=== PATIENT | male | born 1950 | race Caucasian/White ===

== ENCOUNTER 2018-01-19 17:45 | Inpatient (IN) | payer MEDICARE ==
[2018-01-19] MEDS ORDERED: Nicotine PATCH 21 MG/24 HR* PATCH TRANSDERM ONE (18:55)
[2018-01-19 18:56] LABS: ABS Basophils 0.1 10^3/ul (0-0.2); ABS Eosinophils 0.4 10^3/ul (0-0.6); ABS Lymphocytes 2.7 10^3/ul (1.0-4.8); ABS Neutrophils 4.6 10^3/ul (1.5-7.7); ABS Nucleated RBC 0 10^3/ul; Hematocrit 41 % (42-52); Lymphocyte % 30.5 % (25-47); Mean Corpuscular HGB Conc 34 g/dl (31-36); Mean Corpuscular Hemoglobin 34 pg (27-31); Mean Corpuscular Volume 99 fL (80-94); Mean Platelet Volume 8.1 um3 (7.4-10.4); Nucleated Red Blood Cells % 0; Platelet Count 127 10^3/ul (150-450); Red Blood Count 4.11 10^6/ul (4.0-5.4); Red Cell Distribution Width 13 % (10.5-15); White Blood Count 8.8 10^3/ul (3.5-10.8)
[2018-01-19 21:33] LABS: Urine Appearance Clear; Urine Blood Negative (Negative); Urine Color Yellow; Urine Ketones Negative (Negative); Urine Protein Negative (Negative); Urine Specific Gravity 1.004 (1.010-1.030); Urine Urobilinogen Positive (Negative)
--- NOTE | 2018-01-19 21:47 | ED ---
Bisi Monge Emily, scribed for Wisam Saunders MD on 01/19/18 at 1853 . Psychiatric Complaint - HPI Summary HPI Summary: This patient is a 67 year old M presenting to [facility] with a chief complaint of depression that worsened today. The patient rates the pain 0/10 in severity. Symptoms aggravated by nothing. Symptoms alleviated by nothing. Patient reports HI and recent weight loss. Patient denies SI. Pt reports alcohol consumption [employer]MENT[employer]. - History Of Current Complaint Chief Complaint: EDMentalHealth Time Seen by Provider: 01/19/18 18:40 Hx Obtained From: Patient Onset/Duration: Sudden Onset, Still Present, Worse Since - Today Timing: Constant Severity Initially: Mild Severity Currently: Mild Aggravating Factor(s): Nothing Alleviating Factor(s): Nothing Has Suicidal: Denies: Thoughts Has Homicidal: Reports: Thoughts - Allergies/Home Medications Allergies/Adverse Reactions: Allergies Allergy/AdvReac Type Severity Reaction Status Date / Time Penicillins Allergy Rash Verified 01/19/18 17:56 Home Medications: Home Medications NK [No Home Medications Reported] 01/19/18 [History Confirmed 01/19/18] PMH/Surg Hx/FS Hx/Imm Hx Previously Healthy: No Opthamlomology History: Denies: Hx Legally Blind EENT History: Denies: Hx Deafness Psychiatric History: Reports: Hx Inpatient Treatment - SEE ABOVE, Hx Bipolar Disorder - [place] [facility] [place] Hx Substance Abuse - [facility] 12 YEARS AGO Denies: Hx Eating Disorder Infectious Disease History: No Infectious Disease History: Denies: Traveled Outside the [place] in Last 30 Days - Family History Known Family History: Negative: Cardiac Disease - Social History Occupation: Employed Full-time Lives: Alone Alcohol Use: Daily Substance Use Type: Reports: Cocaine, Marijuana Hx Tobacco Use: Yes Smoking Status (MU): Heavy Every Day Tobacco Smoker Review of Systems Positive: Other - Positive recent weight loss Positive: Other - Positive HI. Negative SI All Other Systems Reviewed And Are Negative: Yes Physical Exam - Summary Physical Exam Summary: General: well-appearing, no pain distress Skin: warm, color reflects adequate perfusion, dry Head: normal Eyes: EOMI, JESSIKA ENT: normal Neck: supple, nontender Respiratory: CTA, breath sounds present Cardiovascular: RRR Abdomen: soft, nontender Bowel: present Musculoskeletal: normal, strength/ROM intact Neurological: normal, sensory/motor intact, A&O x3 Psychological: affect/mood appropriate Triage Information Reviewed: Yes Vital Signs On Initial Exam: Initial Vitals Temp Pulse Resp BP Pulse Ox 98.8 F 75 16 139/78 95 01/19/18 17:52 01/19/18 17:52 01/19/18 17:52 01/19/18 17:52 01/19/18 17:52 Vital Signs Reviewed: Yes Diagnostics - Vital Signs Vital Signs Temp Pulse Resp BP Pulse Ox 01/19/18 17:52 98.8 F 75 16 139/78 95 - Laboratory Lab Results: Lab Results 01/19/18 01/19/18 01/19/18 Range/Units 18:25 18:25 21:23 WBC 8.8 (3.5-10.8) 10^3/ul RBC 4.11 (4.0-5.4) 10^6/ul Hgb 14.0 (14.0-18.0) g/dl Hct 41 L (42-52) % MCV 99 H (80-94) fL MCH 34 H (27-31) pg MCHC 34 (31-36) g/dl RDW 13 (10.5-15) % Plt Count 127 L (150-450) 10^3/ul MPV 8.1 (7.4-10.4) um3 Neut % (Auto) 52.6 (38-83) % Lymph % (Auto) 30.5 (25-47) % [place] % (Auto) 11.7 H (0-7) % Eos % (Auto) 4.0 (0-6) % Baso % (Auto) 1.2 (0-2) % Absolute Neuts (auto) 4.6 (1.5-7.7) 10^3/ul Absolute Lymphs (auto) 2.7 (1.0-4.8) 10^3/ul Absolute Monos (auto) 1.0 H (0-0.8) 10^3/ul Absolute Eos (auto) 0.4 (0-0.6) 10^3/ul Absolute Basos (auto) 0.1 (0-0.2) 10^3/ul Absolute Nucleated RBC 0 10^3/ul Nucleated RBC % 0 Sodium 132 L (139-145) mmol/L Potassium 4.4 (3.5-5.0) mmol/L Chloride 95 L (101-111) mmol/L Carbon Dioxide 28 (22-32) mmol/L Anion Gap 9 (2-11) mmol/L BUN 5 L (6-24) mg/dL Creatinine 0.68 (0.67-1.17) mg/dL Est GFR ( Amer) 150.5 (>60) Est GFR (Non-Af Amer) 117.0 (>60) BUN/Creatinine Ratio 7.4 L (8-20) Glucose 104 H (70-100) mg/dL Calcium 9.2 (8.6-10.3) mg/dL Total Bilirubin 1.20 H (0.2-1.0) mg/dL AST 151 H (13-39) U/L ALT 64 H (7-52) U/L Alkaline Phosphatase 56 (34-104) U/L Total Protein 8.3 (6.4-8.9) g/dL Albumin 3.9 (3.2-5.2) g/dL Globulin 4.4 H (2-4) g/dL Albumin/Globulin Ratio 0.9 L (1-3) TSH 0.42 (0.34-5.60) mcIU/mL Urine Color Yellow Urine Appearance Clear Urine pH 6.0 (5-9) Ur Specific [place] 1.004 L (1.010-1.030) Urine Protein Negative (Negative) Urine Ketones Negative (Negative) Urine Blood Negative (Negative) Urine Nitrate Negative (Negative) Urine Bilirubin Negative (Negative) Urine Urobilinogen Positive A (Negative) Ur Leukocyte Esterase Negative (Negative) Urine Glucose Negative (Negative) Salicylates < 2.50 (<30) mg/dL Acetaminophen < 15 mcg/mL Serum Alcohol 297 H (<10) mg/dL Result Diagrams: 01/19/18 18:25 01/19/18 18:25 Lab Statement: Any lab studies that have been ordered have been reviewed, and results considered in the medical decision making process. Course/Dx - Course Course Of Treatment: MHE AND DISPOSITION PENDING AT SHIFT CHANGE - Differential Dx/Clinical Impression Provider Diagnosis: Mental health problem Discharge - Sign-Out/Discharge Documenting (check all that apply): Sign-Out Patient Signing out patient TO: Alec Lazo - Pending MHE - Discharge Plan Condition: Stable Dis[place]ATR[place] [place] Disposition Comment: Sign out to Dr. Lazo upon shift change pending MHE Referrals: No Primary Care Phys,NOPCP [Primary Care Provider] - - Billing Disposition and Condition Condition: STABLE Disposition[place] The documentation as recorded by the Bisi jesus Emily accurately reflects the service I personally performed and the decisions made by me, Wisam Saunders MD.
[2018-01-19] MEDS ORDERED: LORazepam TAB(*) 1 MG PO ONE (21:57)
[2018-01-20] MEDS ORDERED: LORazepam TAB(*) 1 MG PO ONE (03:47)
--- NOTE | 2018-01-20 05:55 | ED ---
Veda Monge Rebecca, scribed for Alec Lazo on 01/20/18 at 0554 . Progress - Progress Note Progress Note: Pt was signed out by Dr. Saunders, pending dispo, awaiting MHE. Course/Dx - Course Course Of Treatment: Pt was signed out by Dr. Saunders, pending dispo, awaiting MHE. Upon completion of MHE and consultation with Dr. Lowe it has been determined that the pt will be transferred with Dx of substance induced mood disorder. - Diagnoses Provider Diagnoses: Substance induced mood disorder Discharge - Sign-Out/Discharge Documenting (check all that apply): Discharge/Admit/Transfer - Transfer, Receiving Sign-Out Receiving patient FROM: Wisam Saunders - Discharge Plan Condition: Stable Disposition: PSYCHIATRIC FACILITY-OTHER Referrals: No Primary Care Phys,NOPCP [Primary Care Provider] - The documentation as recorded by the Veda jesus Rebecca accurately reflects the service I personally performed and the decisions made by , Alec Lazo.
[2018-01-20] MEDS ORDERED: Thiamine IV* 100 MG, Folic Acid IV* 1 MG, Multiple Vitamin IV ADULT* 10 ML in NS 0.9% 1... IV ONE (06:14)
[2018-01-20] MEDS ORDERED: chlordiazePOXIDE CAP* 25 MG PO ONE (06:52)
--- NOTE | 2018-01-20 07:02 | PN ---
ED Flex Patient Progress Note Subjective: This is a 67 year-old M who is pending admission transfer to another psychiatric facility secondary to chronic ETOH dependence + depression___ . Pt reports he's shaky. Has had relief w/ ativan since here however appears he's had 3 doses and it's not lasting long for him. Has had librium in the past and is open to trying this again today for longer effect. Denies pain or medical concerns otherwise. Objective: Vitals: Most recent vital signs documented below. General: NAD, Alert and oriented x3. Heart: S1/S2, RRR Lungs: CTA AB: soft, +BS, NTTP Skin: warm, dry NEURO: tremor Laboratory: Labs from last night reveal dehydration and elevated LTF's most likely from ETOH abuse. Assessment: 1) Depression 2) ETOH dependence Plan: 1) Pending psychiatric transfer. Will follow up daily __while in ED___. 2) Benzo's provided here to prevent seizure. Banana bag also ordered d/t labs. [facility] protocol initiated - nursing has been monitoring and will continue to do so. Vital Signs Temp Pulse Resp BP Pulse Ox 100.2 F 98 20 124/73 95 01/20/18 06:47 01/20/18 06:47 01/20/18 06:47 01/20/18 06:47 01/20/18 06:47 Lab Results - Entire Visit 01/19/18 01/19/18 01/19/18 21:23 21:23 18:25 WBC 8.8 RBC 4.11 Hgb 14.0 Hct 41 L MCV 99 H MCH 34 H MCHC 34 RDW 13 Plt Count 127 L MPV 8.1 Neut % (Auto) 52.6 Lymph % (Auto) 30.5 [place] % (Auto) 11.7 H Eos % (Auto) 4.0 Baso % (Auto) 1.2 Absolute Neuts (auto) 4.6 Absolute Lymphs (auto) 2.7 Absolute Monos (auto) 1.0 H Absolute Eos (auto) 0.4 Absolute Basos (auto) 0.1 Absolute Nucleated RBC 0 Nucleated RBC % 0 Sodium Potassium Chloride Carbon Dioxide Anion Gap BUN Creatinine Est GFR ( Amer) Est GFR (Non-Af Amer) BUN/Creatinine Ratio Glucose Calcium Total Bilirubin AST ALT Alkaline Phosphatase Total Protein Albumin Globulin Albumin/Globulin Ratio TSH Urine Color Yellow Urine Appearance Clear Urine pH 6.0 Ur Specific [place] 1.004 L Urine Protein Negative Urine Ketones Negative Urine Blood Negative Urine Nitrate Negative Urine Bilirubin Negative Urine Urobilinogen Positive A Ur Leukocyte Esterase Negative Urine Glucose Negative Salicylates Urine Opiates Screen None detected Acetaminophen Ur Barbiturates Screen None detected Ur Phencyclidine Scrn None detected Ur Amphetamines Screen None detected U Benzodiazepines Scrn None detected Urine Cocaine Screen None detected U Cannabinoids Screen None detected Serum Alcohol 01/19/18 18:25 WBC RBC Hgb Hct MCV MCH MCHC RDW Plt Count MPV Neut % (Auto) Lymph % (Auto) [place] % (Auto) Eos % (Auto) Baso % (Auto) Absolute Neuts (auto) Absolute Lymphs (auto) Absolute Monos (auto) Absolute Eos (auto) Absolute Basos (auto) Absolute Nucleated RBC Nucleated RBC % Sodium 132 L Potassium 4.4 Chloride 95 L Carbon Dioxide 28 Anion Gap 9 BUN 5 L Creatinine 0.68 Est GFR ( Amer) 150.5 Est GFR (Non-Af Amer) 117.0 BUN/Creatinine Ratio 7.4 L Glucose 104 H Calcium 9.2 Total Bilirubin 1.20 H AST 151 H ALT 64 H Alkaline Phosphatase 56 Total Protein 8.3 Albumin 3.9 Globulin 4.4 H Albumin/Globulin Ratio 0.9 L TSH 0.42 Urine Color Urine Appearance Urine pH Ur Specific [place] Urine Protein Urine Ketones Urine Blood Urine Nitrate Urine Bilirubin Urine Urobilinogen Ur Leukocyte Esterase Urine Glucose Salicylates < 2.50 Urine Opiates Screen Acetaminophen < 15 Ur Barbiturates Screen Ur Phencyclidine Scrn Ur Amphetamines Screen U Benzodiazepines Scrn Urine Cocaine Screen U Cannabinoids Screen Serum Alcohol 297 H
[2018-01-20] MEDS ORDERED: LORazepam INJ* 2 MG/ML 1 ML VIAL IV PUSH ONE (10:10)
--- NOTE | 2018-01-20 10:42 | ED ---
Jevon Monge Stephanie, jenaibed for Xavier Lora MD on 01/20/18 at 1017 . Progress - Progress Note Progress Note: Pt was signed out by Dr. Saunders, pending dispo, awaiting MHE. - Consult/PCP Time Called: 17:52 Course/Dx - Course Course Of Treatment: Pt was signed out by Dr. Saunders, pending dispo, awaiting MHE. Upon completion of MHE and consultation with Dr. Lowe it has been determined that the pt will be transferred with Dx of substance induced mood disorder. Patient was signed out pending transfer for substance-induced mood mood disorder. Mental health feels as though he is no longer suicidal. He is however an ashley withdrawal with tremors, anxiety. He has received multiple doses of Ativan throughout the night. He did receive 1 dose of Librium this morning. He will require admission for withdrawal. This will be a medical admission rather than psychiatric. - Diagnoses Provider Diagnoses: Substance induced mood disorder, Alcohol withdrawal syndrome - Provider Notifications Discussed Care Of Patient With: Eddie Lopez Time Discussed With Above Provider: 10:17 Instructed by Provider To: Admit As Inpatient - Critical Care Time Critical Care Time: 30-74 min - Critical care time excluding separately billable procedures. Discharge - Sign-Out/Discharge Documenting (check all that apply): Discharge/Admit/Transfer - Admit - Discharge Plan Condition: Guarded Disposition: ADMITTED TO [facility] Referrals: No Primary Care Phys,NOPCP [Primary Care Provider] - - Billing Disposition and Condition Condition: GUARDED [place] [place] The documentation as recorded by the Jevon jesus Stephanie accurately reflects the service I personally performed and the decisions made by , Xavier Lora MD.
[2018-01-20] MEDS: Nicotine PATCH 7 MG/24 HR* PATCH TRANSDERM SCH (12:29)
[2018-01-20] MEDS: chlordiazePOXIDE CAP* 25 MG PO SCH ×3 (12:30→21:11)
[2018-01-20] MEDS: Folic Acid TAB* 1 MG PO SCH (12:30)
[2018-01-20] MEDS: Nicotine Patch Removal NOTE FOLLOW UP SCH (12:32)
[2018-01-20 12:35] LABS: Hematocrit 37 % (42-52); Hemoglobin 12.6 g/dl (14.0-18.0); Mean Corpuscular HGB Conc 34 g/dl (31-36); Mean Corpuscular Hemoglobin 34 pg (27-31); Mean Corpuscular Volume 99 fL (80-94); Mean Platelet Volume 8.2 um3 (7.4-10.4); Platelet Count 96 10^3/ul (150-450); Red Blood Count 3.72 10^6/ul (4.0-5.4); Red Cell Distribution Width 13 % (10.5-15); White Blood Count 6.6 10^3/ul (3.5-10.8)
[2018-01-20 12:55] LABS: ABS Basophils 0.1 10^3/ul (0-0.2); ABS Eosinophils 0 10^3/ul (0-0.6); ABS Neutrophils 4.4 10^3/ul (1.5-7.7); ABS Nucleated RBC 0 10^3/ul; Eosinophil % 0.7 % (0-6); Lymphocyte % 15.1 % (25-47); Nucleated Red Blood Cells % 0
[2018-01-20 12:56] LABS: EGFR Non-African American 123.3 (>60)
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
[2018-01-20] MEDS: LORazepam INJ* 2 MG/ML 1 ML VIAL IV PUSH SCH (14:44)
[2018-01-20] MEDS: Hydrocortisone 1% CREAM* 30 GM TUBE TOPICAL SCH (21:12)
[2018-01-21] MEDS: Nicotine Patch Removal NOTE FOLLOW UP SCH (04:33)
[2018-01-21] MEDS: Hydrocortisone 1% CREAM* 30 GM TUBE TOPICAL SCH ×3 (09:21→21:48)
[2018-01-21] MEDS: Nicotine PATCH 7 MG/24 HR* PATCH TRANSDERM SCH (09:21)
[2018-01-21] MEDS: chlordiazePOXIDE CAP* 25 MG PO SCH ×3 (09:21→21:48)
[2018-01-21] MEDS: Folic Acid TAB* 1 MG PO SCH (09:22)
[2018-01-21] MEDS: Thiamine TAB* 100 MG TAB PO SCH (09:22)
[2018-01-21] MEDS ORDERED: Magnesium Sulfate 2 GM IV* 2 GM/50 ML BAG IVPB ONE (10:12)
[2018-01-21 10:32] LABS: INR 1.29 (0.77-1.02)
[2018-01-21] MEDS: Enoxaparin(*) 40 MG/0.4 ML SYR SUBCUT SCH (11:05)
--- NOTE | 2018-01-21 17:12 | PN ---
Subjective Date of Service: 01/21/18 Interval History: Pt seen and examined. Meds and labs reviewed. ROS: Denied SPENCER/dizziness, F/C, N/V, CP, SOB, increased cough, sputum production , abd pain, diarrhea, constipation, dysuria, myalgias, arthralgias, throat pain , and new skin lesions. The rest of the 14 point ROS are unremarkable. PHYSICAL EXAM: GEN APPEARANCE: Awake, not in acute distress HEENT: NC/AT, PERRLA, moist oral mucosa, (-) throat erythema NECK: Soft, supple, (-) cervical LAD, (-)JVD HEART: S1S2 WNL, RRR, No MRG CHEST: CTA, BL, GAE, No W/R/R ABD: Soft, ND/NT, NABS 4x Q EXT: No C/C/RUE swelling, warmth, and erythema with dressing in place SKIN: Warm to touch PSYCH: No active psychosis, hallucinations, depression, SI/HI Objective Active Medications: Chlordiazepoxide (Librium Cap*) 25 mg PO TID [facility] Last Admin: 01/21/18 14:24 Dose: 25 mg Enoxaparin Sodium (Lovenox(*)) 40 mg SUBCUT Q24H [facility] Last Admin: 01/21/18 11:05 Dose: 40 mg Folic Acid (Folvite Tab*) 1 mg PO DAILY [facility] Last Admin: 01/21/18 09:22 Dose: 1 mg Hydrocortisone (Hytone Cream 1%*) 1 applic TOPICAL TID [facility] Last Admin: 01/21/18 16:43 Dose: 1 applic Lorazepam (Ativan Inj*) 0 - 3 mg IV PUSH .PER [facility] PROTOCOL [facility] PRN Reason: Protocol Last Admin: 01/20/18 14:44 Dose: 1.5 mg Nicotine (Nicotine Patch 7 Mg/24 Hr*) 1 patch TRANSDERM DAILY [facility] Last Admin: 01/21/18 09:21 Dose: 1 patch Pharmacy Profile Note (Nicotine Patch Removal Note*) 1 note FOLLOW UP 0600 [facility] Last Admin: 01/21/18 04:33 Dose: Not Given Thiamine HCl (Vitamin B-1 Tab*) 100 mg PO DAILY [facility] Last Admin: 01/21/18 09:22 Dose: 100 mg Oxygen Devices in Use Now: None Result Diagrams: 01/20/18 12:19 01/20/18 12:19 Additional Lab and Data: Lab Results 01/19/18 01/19/18 01/19/18 Range/Units 18:25 18:25 21:23 WBC 8.8 (3.5-10.8) 10^3/ul RBC 4.11 (4.0-5.4) 10^6/ul Hgb 14.0 (14.0-18.0) g/dl Hct 41 L (42-52) % MCV 99 H (80-94) fL MCH 34 H (27-31) pg MCHC 34 (31-36) g/dl RDW 13 (10.5-15) % Plt Count 127 L (150-450) 10^3/ul MPV 8.1 (7.4-10.4) um3 Neut % (Auto) 52.6 (38-83) % Lymph % (Auto) 30.5 (25-47) % [place] % (Auto) 11.7 H (0-7) % Eos % (Auto) 4.0 (0-6) % Baso % (Auto) 1.2 (0-2) % Absolute Neuts (auto) 4.6 (1.5-7.7) 10^3/ul Absolute Lymphs (auto) 2.7 (1.0-4.8) 10^3/ul Absolute Monos (auto) 1.0 H (0-0.8) 10^3/ul Absolute Eos (auto) 0.4 (0-0.6) 10^3/ul Absolute Basos (auto) 0.1 (0-0.2) 10^3/ul Absolute Nucleated RBC 0 10^3/ul Nucleated RBC % 0 Sodium 132 L (139-145) mmol/L Potassium 4.4 (3.5-5.0) mmol/L Chloride 95 L (101-111) mmol/L Carbon Dioxide 28 (22-32) mmol/L Anion Gap 9 (2-11) mmol/L BUN 5 L (6-24) mg/dL Creatinine 0.68 (0.67-1.17) mg/dL Est GFR ( Amer) 150.5 (>60) Est GFR (Non-Af Amer) 117.0 (>60) BUN/Creatinine Ratio 7.4 L (8-20) Glucose 104 H (70-100) mg/dL Calcium 9.2 (8.6-10.3) mg/dL Total Bilirubin 1.20 H (0.2-1.0) mg/dL AST 151 H (13-39) U/L ALT 64 H (7-52) U/L Alkaline Phosphatase 56 (34-104) U/L Total Protein 8.3 (6.4-8.9) g/dL Albumin 3.9 (3.2-5.2) g/dL Globulin 4.4 H (2-4) g/dL Albumin/Globulin Ratio 0.9 L (1-3) TSH 0.42 (0.34-5.60) mcIU/mL Urine Color Yellow Urine Appearance Clear Urine pH 6.0 (5-9) Ur Specific [place] 1.004 L (1.010-1.030) Urine Protein Negative (Negative) Urine Ketones Negative (Negative) Urine Blood Negative (Negative) Urine Nitrate Negative (Negative) Urine Bilirubin Negative (Negative) Urine Urobilinogen Positive A (Negative) Ur Leukocyte Esterase Negative (Negative) Urine Glucose Negative (Negative) Salicylates < 2.50 (<30) mg/dL Acetaminophen < 15 mcg/mL Serum Alcohol 297 H (<10) mg/dL Assess/Plan/Problems-Billing Assessment: - Patient Problems (1) Alcohol withdrawal Current Visit: Yes Status: Acute Code(s): F10.239 - ALCOHOL DEPENDENCE WITH WITHDRAWAL, UNSPECIFIED SNOMED Code(s): 427277442 Comment: --Continue WAM protocol --Continue Thiamine supplementations --Advised life-style modifications (2) Bipolar disorder Current Visit: Yes Status: Acute Comment: --Will avoid psych meds overnight given active withdrawal --Consider Depakote and/or psych consult in AM (3) Hepatitis C Current Visit: Yes Status: Acute Comment: --Pt unfortunately will need to quit ETOH to improve compliance if he wants to seek treatment for Hep C --Will defer with PCP (4) Tobacco abuse Current Visit: Yes Status: Acute Code(s): Z72.0 - TOBACCO USE SNOMED Code( s): 865647681 Comment: --Advised lifestyle modifications --Continue Nicotine patch (5) Hypomagnesemia Current Visit: Yes Status: Acute Code(s): E83.42 - HYPOMAGNESEMIA SNOMED Code(s): 642385981 Comment: --Corrected this AM --Will continue to follow Status and Disposition: --Continue watchful waiting --Touch base with Care Coordinators in AM to consider rehab--inpatient vs outpt
[2018-01-21] MEDS: LORazepam INJ* 2 MG/ML 1 ML VIAL IV PUSH SCH (21:49)
[2018-01-22] MEDS: Nicotine Patch Removal NOTE FOLLOW UP SCH (04:06)
[2018-01-22] MEDS ORDERED: Magnesium Hydroxide LIQ* 30 ML UDC PO PRN (04:09)
[2018-01-22 06:15] LABS: ABS Basophils 0.1 10^3/ul (0-0.2); ABS Eosinophils 0.3 10^3/ul (0-0.6); ABS Lymphocytes 1.8 10^3/ul (1.0-4.8); ABS Monocytes 0.8 10^3/ul (0-0.8); ABS Neutrophils 4.6 10^3/ul (1.5-7.7); ABS Nucleated RBC 0 10^3/ul; Eosinophil % 3.8 % (0-6); Hematocrit 35 % (42-52); Hemoglobin 12.2 g/dl (14.0-18.0); Lymphocyte % 23.7 % (25-47); Mean Corpuscular HGB Conc 35 g/dl (31-36); Mean Corpuscular Hemoglobin 35 pg (27-31); Mean Corpuscular Volume 99 fL (80-94); Mean Platelet Volume 8.5 um3 (7.4-10.4); Nucleated Red Blood Cells % 0.1; Platelet Count 92 10^3/ul (150-450); Red Blood Count 3.48 10^6/ul (4.0-5.4); Red Cell Distribution Width 13 % (10.5-15); White Blood Count 7.5 10^3/ul (3.5-10.8)
[2018-01-22 06:31] LABS: EGFR Non-African American 125.5 (>60)
[2018-01-22] MEDS ORDERED: Influenza VAC *QUAD* 2017-18* 0.5 ML SYRINGE IM ONE (09:00)
[2018-01-22] MEDS ORDERED: Pneumococcal *Vac Polyvalent 0.5 ML VIAL IM ONE (09:00)
[2018-01-22] MEDS: chlordiazePOXIDE CAP* 25 MG PO SCH ×3 (09:36→21:58)
[2018-01-22] MEDS: Thiamine TAB* 100 MG TAB PO SCH (09:36)
[2018-01-22] MEDS: Docusate CAP* 100 MG PO SCH ×2 (09:36→21:59)
[2018-01-22] MEDS: Folic Acid TAB* 1 MG PO SCH (09:36)
[2018-01-22] MEDS: Nicotine PATCH 7 MG/24 HR* PATCH TRANSDERM SCH (09:37)
[2018-01-22] MEDS: Hydrocortisone 1% CREAM* 30 GM TUBE TOPICAL SCH ×3 (09:47→21:59)
[2018-01-22] MEDS: Enoxaparin(*) 40 MG/0.4 ML SYR SUBCUT SCH (13:15)
[2018-01-22] MEDS ORDERED: Nicotine Inhaler* 10 MG AMP INH PRN (16:27)
[2018-01-22] MEDS ORDERED: Mouth Piece, Nicotine* 1 EACH CARTRIDGE INH PRN (16:27)
--- NOTE | 2018-01-22 16:29 | PN ---
Subjective Date of Service: 01/22/18 Interval History: Pt seen and examined. Meds and labs reviewed. Pt asking if his nicotine dosage can be increased. ROS: Denied SPENCER/dizziness, F/C, N/V, CP, SOB, increased cough, sputum production , abd pain, diarrhea, constipation, dysuria, myalgias, arthralgias, throat pain , and new skin lesions. The rest of the 14 point ROS are unremarkable. PHYSICAL EXAM: GEN APPEARANCE: Awake, not in acute distress HEENT: NC/AT, PERRLA, moist oral mucosa, (-) throat erythema NECK: Soft, supple, (-) cervical LAD, (-)JVD HEART: S1S2 WNL, RRR, No MRG CHEST: CTA, BL, GAE, No W/R/R ABD: Soft, ND/NT, NABS 4x Q EXT: No C/C/RUE swelling, warmth, and erythema with dressing in place SKIN: Warm to touch PSYCH: No active psychosis, hallucinations, depression, SI/HI Objective Active Medications: Chlordiazepoxide (Librium Cap*) 25 mg PO TID [facility] Last Admin: 01/22/18 13:14 Dose: 25 mg Device (Nicotine Mouth Piece*) 1 each INH .USE WITH NICOTROL PRN PRN Reason: CRAVING Docusate Sodium (Colace Cap*) 100 mg PO BID [facility] Last Admin: 01/22/18 09:36 Dose: 100 mg Enoxaparin Sodium (Lovenox(*)) 40 mg SUBCUT Q24H [facility] Last Admin: 01/22/18 13:15 Dose: 40 mg Folic Acid (Folvite Tab*) 1 mg PO DAILY [facility] Last Admin: 01/22/18 09:36 Dose: 1 mg Hydrocortisone (Hytone Cream 1%*) 1 applic TOPICAL TID [facility] Last Admin: 01/22/18 09:47 Dose: 1 applic Lorazepam (Ativan Inj*) 0 - 3 mg IV PUSH .PER [facility] PROTOCOL [facility] PRN Reason: Protocol Last Admin: 01/21/18 21:49 Dose: 1.5 mg Magnesium Hydroxide (Milk Of Magnesia Liq*) 30 ml PO Q6H PRN PRN Reason: CONSTIPATION Nicotine (Nicotine Patch 14 Mg/24 Hr*) 1 patch TRANSDERM DAILY [facility] Nicotine (Nicotine Inhaler*) 10 mg INH Q2H PRN PRN Reason: CRAVING Thiamine HCl (Vitamin B-1 Tab*) 100 mg PO DAILY [facility] Last Admin: 01/22/18 09:36 Dose: 100 mg Vital Signs - 8 hr 01/22/18 01/22/18 01/22/18 09:00 09:12 09:36 Temperature 98.6 F Pulse Rate 96 Respiratory 20 18 Rate Blood Pressure 127/54 (mmHg) O2 Sat by Pulse 94 Oximetry 01/22/18 01/22/18 01/22/18 11:07 11:15 12:48 Temperature 99.3 F Pulse Rate 71 Respiratory 18 18 Rate Blood Pressure 125/68 (mmHg) O2 Sat by Pulse 95 Oximetry 01/22/18 01/22/18 13:14 15:28 Temperature 98.1 F 98.7 F Pulse Rate 75 72 Respiratory 18 18 Rate Blood Pressure 135/62 127/65 (mmHg) O2 Sat by Pulse 95 98 Oximetry Oxygen Devices in Use Now: None Result Diagrams: 01/22/18 05:42 01/22/18 05:42 Additional Lab and Data: Lab Results 01/19/18 01/19/18 01/19/18 Range/Units 18:25 18:25 21:23 WBC 8.8 (3.5-10.8) 10^3/ul RBC 4.11 (4.0-5.4) 10^6/ul Hgb 14.0 (14.0-18.0) g/dl Hct 41 L (42-52) % MCV 99 H (80-94) fL MCH 34 H (27-31) pg MCHC 34 (31-36) g/dl RDW 13 (10.5-15) % Plt Count 127 L (150-450) 10^3/ul MPV 8.1 (7.4-10.4) um3 Neut % (Auto) 52.6 (38-83) % Lymph % (Auto) 30.5 (25-47) % [place] % (Auto) 11.7 H (0-7) % Eos % (Auto) 4.0 (0-6) % Baso % (Auto) 1.2 (0-2) % Absolute Neuts (auto) 4.6 (1.5-7.7) 10^3/ul Absolute Lymphs (auto) 2.7 (1.0-4.8) 10^3/ul Absolute Monos (auto) 1.0 H (0-0.8) 10^3/ul Absolute Eos (auto) 0.4 (0-0.6) 10^3/ul Absolute Basos (auto) 0.1 (0-0.2) 10^3/ul Absolute Nucleated RBC 0 10^3/ul Nucleated RBC % 0 Sodium 132 L (139-145) mmol/L Potassium 4.4 (3.5-5.0) mmol/L Chloride 95 L (101-111) mmol/L Carbon Dioxide 28 (22-32) mmol/L Anion Gap 9 (2-11) mmol/L BUN 5 L (6-24) mg/dL Creatinine 0.68 (0.67-1.17) mg/dL Est GFR ( Amer) 150.5 (>60) Est GFR (Non-Af Amer) 117.0 (>60) BUN/Creatinine Ratio 7.4 L (8-20) Glucose 104 H (70-100) mg/dL Calcium 9.2 (8.6-10.3) mg/dL Total Bilirubin 1.20 H (0.2-1.0) mg/dL AST 151 H (13-39) U/L ALT 64 H (7-52) U/L Alkaline Phosphatase 56 (34-104) U/L Total Protein 8.3 (6.4-8.9) g/dL Albumin 3.9 (3.2-5.2) g/dL Globulin 4.4 H (2-4) g/dL Albumin/Globulin Ratio 0.9 L (1-3) TSH 0.42 (0.34-5.60) mcIU/mL Urine Color Yellow Urine Appearance Clear Urine pH 6.0 (5-9) Ur Specific [place] 1.004 L (1.010-1.030) Urine Protein Negative (Negative) Urine Ketones Negative (Negative) Urine Blood Negative (Negative) Urine Nitrate Negative (Negative) Urine Bilirubin Negative (Negative) Urine Urobilinogen Positive A (Negative) Ur Leukocyte Esterase Negative (Negative) Urine Glucose Negative (Negative) Salicylates < 2.50 (<30) mg/dL Acetaminophen < 15 mcg/mL Serum Alcohol 297 H (<10) mg/dL Assess/Plan/Problems-Billing Assessment: - Patient Problems (1) Alcohol withdrawal Current Visit: Yes Status: Acute Code(s): F10.239 - ALCOHOL DEPENDENCE WITH WITHDRAWAL, UNSPECIFIED SNOMED Code(s): 542119205 Comment: --Continue [facility] protocol --Continue Thiamine supplementations --Advised life-style modifications (2) Bipolar disorder Current Visit: Yes Status: Acute Comment: --Continue watchful waiting (3) Hepatitis C Current Visit: Yes Status: Acute Comment: --Pt unfortunately will need to quit ETOH to improve compliance if he wants to seek treatment for Hep C --Will defer with PCP (4) Tobacco abuse Current Visit: Yes Status: Acute Code(s): Z72.0 - TOBACCO USE SNOMED Code( s): 853127487 Comment: --Advised lifestyle modifications --Increased Nicotine patch to 14 mg every day and prescribed Nicotine inhaler (5) Hypomagnesemia Current Visit: Yes Status: Acute Code(s): E83.42 - HYPOMAGNESEMIA SNOMED Code(s): 256034007 Comment: --Corrected this AM --Will continue to follow Status and Disposition: --Continue watchful waiting --Touch base with Care Coordinators in AM to consider rehab--inpatient vs outpt
[2018-01-22] MEDS: Nicotine PATCH 14 MG/24 HR* PATCH TRANSDERM SCH (16:59)
[2018-01-23] MEDS: Thiamine TAB* 100 MG TAB PO SCH (08:45)
[2018-01-23] MEDS: chlordiazePOXIDE CAP* 25 MG PO SCH ×3 (08:45→21:11)
[2018-01-23] MEDS: Docusate CAP* 100 MG PO SCH ×2 (08:45→21:11)
[2018-01-23] MEDS: Folic Acid TAB* 1 MG PO SCH (08:45)
[2018-01-23] MEDS: Nicotine PATCH 14 MG/24 HR* PATCH TRANSDERM SCH (08:47)
[2018-01-23] MEDS: Hydrocortisone 1% CREAM* 30 GM TUBE TOPICAL SCH ×3 (08:48→21:18)
[2018-01-23] MEDS: Enoxaparin(*) 40 MG/0.4 ML SYR SUBCUT SCH (14:51)
--- NOTE | 2018-01-23 15:58 | PN ---
Subjective Date of Service: 01/23/18 Interval History: Pt seen and examined. Meds and labs reviewed. ROS: Denied SPENCER/dizziness, F/C, N/V, CP, SOB, increased cough, sputum production , abd pain, diarrhea, constipation, dysuria, myalgias, arthralgias, throat pain , and new skin lesions. The rest of the 14 point ROS are unremarkable. PHYSICAL EXAM: GEN APPEARANCE: Awake, not in acute distress HEENT: NC/AT, PERRLA, moist oral mucosa, (-) throat erythema NECK: Soft, supple, (-) cervical LAD, (-)JVD HEART: S1S2 WNL, RRR, No MRG CHEST: CTA, BL, GAE, No W/R/R ABD: Soft, ND/NT, NABS 4x Q EXT: No C/C/E SKIN: Warm to touch PSYCH: No active psychosis, hallucinations, depression, SI/HI Objective Active Medications: Chlordiazepoxide (Librium Cap*) 25 mg PO TID [facility] Last Admin: 01/23/18 14:52 Dose: 25 mg Device (Nicotine Mouth Piece*) 1 each INH .USE WITH NICOTROL PRN PRN Reason: CRAVING Last Admin: 01/22/18 16:50 Dose: 1 each Docusate Sodium (Colace Cap*) 100 mg PO BID [facility] Last Admin: 01/23/18 08:45 Dose: 100 mg Enoxaparin Sodium (Lovenox(*)) 40 mg SUBCUT Q24H [facility] Last Admin: 01/23/18 14:51 Dose: 40 mg Folic Acid (Folvite Tab*) 1 mg PO DAILY [facility] Last Admin: 01/23/18 08:45 Dose: 1 mg Hydrocortisone (Hytone Cream 1%*) 1 applic TOPICAL TID [facility] Last Admin: 01/23/18 14:52 Dose: 1 applic Lorazepam (Ativan Inj*) 0 - 3 mg IV PUSH .PER [facility] PROTOCOL [facility] PRN Reason: Protocol Last Admin: 01/21/18 21:49 Dose: 1.5 mg Magnesium Hydroxide (Milk Of Magnesia Liq*) 30 ml PO Q6H PRN PRN Reason: CONSTIPATION Nicotine (Nicotine Patch 14 Mg/24 Hr*) 1 patch TRANSDERM DAILY [facility] Last Admin: 01/23/18 08:47 Dose: 1 patch Nicotine (Nicotine Inhaler*) 10 mg INH Q2H PRN PRN Reason: CRAVING Last Admin: 01/22/18 16:50 Dose: 10 mg Thiamine HCl (Vitamin B-1 Tab*) 100 mg PO DAILY [facility] Last Admin: 01/23/18 08:45 Dose: 100 mg Vital Signs - 8 hr 01/23/18 01/23/18 01/23/18 08:45 09:02 09:50 Temperature 98.1 F Pulse Rate 84 Respiratory 16 22 22 Rate Blood Pressure 135/72 (mmHg) O2 Sat by Pulse 94 Oximetry 01/23/18 01/23/18 01/23/18 10:38 10:56 14:52 Temperature 97.8 F Pulse Rate 74 Respiratory 16 15 16 Rate Blood Pressure 138/65 (mmHg) O2 Sat by Pulse 98 Oximetry Oxygen Devices in Use Now: None Result Diagrams: 01/22/18 05:42 01/22/18 05:42 Additional Lab and Data: Lab Results 01/19/18 01/19/18 01/19/18 Range/Units 18:25 18:25 21:23 WBC 8.8 (3.5-10.8) 10^3/ul RBC 4.11 (4.0-5.4) 10^6/ul Hgb 14.0 (14.0-18.0) g/dl Hct 41 L (42-52) % MCV 99 H (80-94) fL MCH 34 H (27-31) pg MCHC 34 (31-36) g/dl RDW 13 (10.5-15) % Plt Count 127 L (150-450) 10^3/ul MPV 8.1 (7.4-10.4) um3 Neut % (Auto) 52.6 (38-83) % Lymph % (Auto) 30.5 (25-47) % [place] % (Auto) 11.7 H (0-7) % Eos % (Auto) 4.0 (0-6) % Baso % (Auto) 1.2 (0-2) % Absolute Neuts (auto) 4.6 (1.5-7.7) 10^3/ul Absolute Lymphs (auto) 2.7 (1.0-4.8) 10^3/ul Absolute Monos (auto) 1.0 H (0-0.8) 10^3/ul Absolute Eos (auto) 0.4 (0-0.6) 10^3/ul Absolute Basos (auto) 0.1 (0-0.2) 10^3/ul Absolute Nucleated RBC 0 10^3/ul Nucleated RBC % 0 Sodium 132 L (139-145) mmol/L Potassium 4.4 (3.5-5.0) mmol/L Chloride 95 L (101-111) mmol/L Carbon Dioxide 28 (22-32) mmol/L Anion Gap 9 (2-11) mmol/L BUN 5 L (6-24) mg/dL Creatinine 0.68 (0.67-1.17) mg/dL Est GFR ( Amer) 150.5 (>60) Est GFR (Non-Af Amer) 117.0 (>60) BUN/Creatinine Ratio 7.4 L (8-20) Glucose 104 H (70-100) mg/dL Calcium 9.2 (8.6-10.3) mg/dL Total Bilirubin 1.20 H (0.2-1.0) mg/dL AST 151 H (13-39) U/L ALT 64 H (7-52) U/L Alkaline Phosphatase 56 (34-104) U/L Total Protein 8.3 (6.4-8.9) g/dL Albumin 3.9 (3.2-5.2) g/dL Globulin 4.4 H (2-4) g/dL Albumin/Globulin Ratio 0.9 L (1-3) TSH 0.42 (0.34-5.60) mcIU/mL Urine Color Yellow Urine Appearance Clear Urine pH 6.0 (5-9) Ur Specific [place] 1.004 L (1.010-1.030) Urine Protein Negative (Negative) Urine Ketones Negative (Negative) Urine Blood Negative (Negative) Urine Nitrate Negative (Negative) Urine Bilirubin Negative (Negative) Urine Urobilinogen Positive A (Negative) Ur Leukocyte Esterase Negative (Negative) Urine Glucose Negative (Negative) Salicylates < 2.50 (<30) mg/dL Acetaminophen < 15 mcg/mL Serum Alcohol 297 H (<10) mg/dL Assess/Plan/Problems-Billing Assessment: - Patient Problems (1) Alcohol withdrawal Current Visit: Yes Status: Acute Code(s): F10.239 - ALCOHOL DEPENDENCE WITH WITHDRAWAL, UNSPECIFIED SNOMED Code(s): 295151634 Comment: --Continue [facility] protocol --Continue Thiamine supplementations --Advised life-style modifications (2) Bipolar disorder Current Visit: Yes Status: Acute Comment: --Continue watchful waiting (3) Hepatitis C Current Visit: Yes Status: Acute Comment: --To F/U with Dr. Brown in 1 month to discuss treatment of Hep C --Will defer (4) Tobacco abuse Current Visit: Yes Status: Acute Code(s): Z72.0 - TOBACCO USE SNOMED Code( s): 410647689 Comment: --Advised lifestyle modifications --Increased Nicotine patch to 14 mg every day and prescribed Nicotine inhaler (5) Hypomagnesemia Current Visit: Yes Status: Acute Code(s): E83.42 - HYPOMAGNESEMIA SNOMED Code(s): 350779298 Comment: --Will continue to follow Status and Disposition: --Continue watchful waiting
[2018-01-24 08:11] LABS: ABS Basophils 0.1 10^3/ul (0-0.2); ABS Eosinophils 0.3 10^3/ul (0-0.6); ABS Lymphocytes 1.3 10^3/ul (1.0-4.8); ABS Monocytes 1.2 10^3/ul (0-0.8); ABS Neutrophils 5.2 10^3/ul (1.5-7.7); ABS Nucleated RBC 0 10^3/ul; Eosinophil % 3.7 % (0-6); Hematocrit 36 % (42-52); Hemoglobin 12.3 g/dl (14.0-18.0); Lymphocyte % 16.6 % (25-47); Mean Corpuscular HGB Conc 34 g/dl (31-36); Mean Corpuscular Hemoglobin 34 pg (27-31); Mean Corpuscular Volume 100 fL (80-94); Mean Platelet Volume 8.4 um3 (7.4-10.4); Nucleated Red Blood Cells % 0; Platelet Count 114 10^3/ul (150-450); Red Blood Count 3.58 10^6/ul (4.0-5.4); Red Cell Distribution Width 14 % (10.5-15); White Blood Count 8.1 10^3/ul (3.5-10.8)
[2018-01-24 08:26] LABS: EGFR Non-African American 130.2 (>60)
[2018-01-24] MEDS: Folic Acid TAB* 1 MG PO SCH (09:38)
[2018-01-24] MEDS: chlordiazePOXIDE CAP* 25 MG PO SCH ×2 (09:38→20:08)
[2018-01-24] MEDS: Thiamine TAB* 100 MG TAB PO SCH (09:38)
[2018-01-24] MEDS: Docusate CAP* 100 MG PO SCH ×2 (09:38→20:09)
[2018-01-24] MEDS: Nicotine PATCH 14 MG/24 HR* PATCH TRANSDERM SCH (09:39)
--- NOTE | 2018-01-24 10:33 | PN ---
Subjective Date of Service: 01/24/18 Interval History: HOSPITALIST PROGRESS NOTE Patient seen and examined at bedside. Care reviewed and d/w Talya Mercado RN. He offers no complaints today, tremors are improved, but feels his legs are still weak. Family History: Unchanged from Admission Social History: Unchanged from Admission Past Medical History: Unchanged from Admission Objective Active Medications: Chlordiazepoxide (Librium Cap*) 25 mg PO BID [facility] Device (Nicotine Mouth Piece*) 1 each INH .USE WITH NICOTROL PRN PRN Reason: CRAVING Last Admin: 01/22/18 16:50 Dose: 1 each Docusate Sodium (Colace Cap*) 100 mg PO BID [facility] Last Admin: 01/24/18 09:38 Dose: 100 mg Enoxaparin Sodium (Lovenox(*)) 40 mg SUBCUT Q24H [facility] Last Admin: 01/23/18 14:51 Dose: 40 mg Folic Acid (Folvite Tab*) 1 mg PO DAILY [facility] Last Admin: 01/24/18 09:38 Dose: 1 mg Hydrocortisone (Hytone Cream 1%*) 1 applic TOPICAL TID [facility] Last Admin: 01/23/18 21:18 Dose: 1 applic Lorazepam (Ativan Inj*) 0 - 3 mg IV PUSH .PER [facility] PROTOCOL [facility] PRN Reason: Protocol Last Admin: 01/21/18 21:49 Dose: 1.5 mg Magnesium Hydroxide (Milk Of Magnesia Liq*) 30 ml PO Q6H PRN PRN Reason: CONSTIPATION Nicotine (Nicotine Patch 14 Mg/24 Hr*) 1 patch TRANSDERM DAILY [facility] Last Admin: 01/24/18 09:39 Dose: 1 patch Nicotine (Nicotine Inhaler*) 10 mg INH Q2H PRN PRN Reason: CRAVING Last Admin: 01/22/18 16:50 Dose: 10 mg Thiamine HCl (Vitamin B-1 Tab*) 100 mg PO DAILY [facility] Last Admin: 01/24/18 09:38 Dose: 100 mg Vital Signs - 8 hr 01/24/18 01/24/18 01/24/18 04:00 04:06 08:04 Temperature 97.5 F 98.5 F Pulse Rate 79 67 Respiratory 16 17 Rate Blood Pressure 89/50 124/70 126/63 (mmHg) O2 Sat by Pulse 98 97 Oximetry Oxygen Devices in Use Now: None Appearance: Elderly gentleman sitting up in bed in NAD. Eyes: No Scleral Icterus Ears/Nose/Mouth/Throat: Mucous Membranes Moist Neck: Trachea Midline Respiratory: Symmetrical Chest Expansion and Respiratory Effort, Clear to Auscultation Cardiovascular: RRR - Normal S1 and S2 Neurological: Alert and Oriented x 3, NL Muscle Strength and Tone Result Diagrams: 01/24/18 07:58 01/24/18 07:58 Assess/Plan/Problems-Billing Assessment: Mr. Green is a 67yo M with PMH of Alcoholism, hepatitis C, bipolar disorder, who presented to ED with alcohol withdrawal. - Patient Problems (1) Alcohol withdrawal Comment: - Continue [facility] protocol and Librium taper. - Continue Thiamine supplementation. - Has not decided if he'll pursue rehab or not. (2) Hepatitis C Comment: - For f/u with Dr. Cox as outpatient to discuss treatment of Hep C - compliance will be an issue. (3) Tobacco abuse Comment: - Continue Nicotine patch and inhaler. (4) Weakness Comment: - PT evaluation. (5) DVT prophylaxis Comment: - Lovenox. (6) Full code status Status and Disposition: Inpatient for management of alcohol withdrawal.
[2018-01-24] MEDS: Hydrocortisone 1% CREAM* 30 GM TUBE TOPICAL SCH ×3 (10:52→20:09)
[2018-01-24] MEDS: Enoxaparin(*) 40 MG/0.4 ML SYR SUBCUT SCH (14:08)
[2018-01-25] MEDS: Nicotine PATCH 14 MG/24 HR* PATCH TRANSDERM SCH (08:36)
[2018-01-25] MEDS: chlordiazePOXIDE CAP* 25 MG PO SCH (08:36)
[2018-01-25] MEDS: Docusate CAP* 100 MG PO SCH ×2 (08:36→21:54)
[2018-01-25] MEDS: Thiamine TAB* 100 MG TAB PO SCH (08:37)
[2018-01-25] MEDS: Hydrocortisone 1% CREAM* 30 GM TUBE TOPICAL SCH ×3 (08:37→22:00)
[2018-01-25] MEDS: Folic Acid TAB* 1 MG PO SCH (08:37)
[2018-01-25] MEDS: Enoxaparin(*) 40 MG/0.4 ML SYR SUBCUT SCH (11:19)
--- NOTE | 2018-01-25 13:08 | PN ---
Subjective Date of Service: 01/25/18 Interval History: HOSPITALIST PROGRESS NOTE Patient seen and examined at bedside. Care reviewed and d/w April Yañez RN. He offers no new complaints today. Still feels weak, tremors are unchanged. Denies SI and HI. Family History: Unchanged from Admission Social History: Unchanged from Admission Past Medical History: Unchanged from Admission Objective Active Medications: Device (Nicotine Mouth Piece*) 1 each INH .USE WITH NICOTROL PRN PRN Reason: CRAVING Last Admin: 01/22/18 16:50 Dose: 1 each Docusate Sodium (Colace Cap*) 100 mg PO BID [facility] Last Admin: 01/25/18 08:36 Dose: 100 mg Enoxaparin Sodium (Lovenox(*)) 40 mg SUBCUT Q24H [facility] Last Admin: 01/25/18 11:19 Dose: 40 mg Folic Acid (Folvite Tab*) 1 mg PO DAILY [facility] Last Admin: 01/25/18 08:37 Dose: 1 mg Hydrocortisone (Hytone Cream 1%*) 1 applic TOPICAL TID [facility] Last Admin: 01/25/18 08:37 Dose: 1 applic Lorazepam (Ativan Inj*) 0 - [address] P[address] .[address] [facility] PROTOCOL [facility] PRN Reason: Protocol Last Admin: 01/21/18 21:49 Dose: 1.5 mg Magnesium Hydroxide (Milk Of Magnesia Liq*) 30 ml PO Q6H PRN PRN Reason: CONSTIPATION Nicotine (Nicotine Patch 14 Mg/24 Hr*) 1 patch TRANSDERM DAILY [facility] Last Admin: 01/25/18 08:36 Dose: 1 patch Nicotine (Nicotine Inhaler*) 10 mg INH Q2H PRN PRN Reason: CRAVING Last Admin: 01/22/18 16:50 Dose: 10 mg Thiamine HCl (Vitamin B-1 Tab*) 100 mg PO DAILY [facility] Last Admin: 01/25/18 08:37 Dose: 100 mg Vital Signs - 8 hr 01/25/18 11:42 Temperature 98.8 F Pulse Rate 63 Respiratory 18 Rate Blood Pressure 126/59 (mmHg) O2 Sat by Pulse 96 Oximetry Oxygen Devices in Use Now: None Appearance: Elderly gentleman lying in bed in NAD. Eyes: No Scleral Icterus Ears/Nose/Mouth/Throat: Mucous Membranes Moist Neck: Trachea Midline Respiratory: Symmetrical Chest Expansion and Respiratory Effort, Clear to Auscultation Cardiovascular: RRR - Normal S1 and S2 Abdominal: NL Sounds; No Tenderness; No Distention Extremities: No Edema Neurological: Alert and Oriented x 3, NL Muscle Strength and Tone Result Diagrams: 01/24/18 07:58 01/24/18 07:58 Assess/Plan/Problems-Billing Assessment: Mr. Green is a 67yo M with PMH of Alcoholism, hepatitis C, bipolar disorder, who presented to ED with alcohol withdrawal. - Patient Problems (1) Bipolar disorder Comment: - Patient's initial ED visit was prompted by HI with no SI, and significant weight loss. He stated he was depressed, could not eat, and had lost >50lbs. 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 Unfortunately, during his wait he developed withdrawal and was admitted to the medical floor for further management. - His withdrawal is resolved, he denies SI/HI - will request MHU re-evaluation. (2) Weight loss Comment: - Patient reports >50lbs weight loss due to poor oral intake he associated with depression. - Will check w/u including CT chest/abd/pelvis looking for malignancy. (3) Alcohol withdrawal Comment: - Continue [facility] protocol and Librium taper. - Continue Thiamine supplementation. (4) Hepatitis C Comment: - For f/u with Dr. Cox as outpatient to discuss treatment of Hep C - compliance will be an issue. (5) Tobacco abuse Comment: - Continue Nicotine patch and inhaler. (6) Weakness Comment: - PT evaluation. (7) DVT prophylaxis Comment: - Lovenox. (8) Full code status Status and Disposition: Inpatient for management of alcohol withdrawal.
--- NOTE | 2018-01-25 14:50 | RAD ---
INDICATION: Weight loss evaluate for tumor. COMPARISON: Comparison is made with a prior chest x-ray study from April 06, [address] of the abdomen and pelvis also from April 06, 2012. TECHNIQUE: A CT scan of the chest, abdomen and pelvis was performed without intravenous or oral contrast. Contiguous axial sections were obtained from the lung apices through the symphysis pubis. Images were reconstructed in the coronal and sagittal planes. FINDINGS: There are several small nodular densities at both lung apices the majority of these appear pleural-based measuring up to 6 mm in size and likely related to bilateral apical scarring although nonspecific. The lungs are otherwise clear. No pleural effusion is seen. There are several slightly enlarged lymph nodes in the right paratracheal, precarinal regions measuring up to 1.1 cm in size. There are enlarged lymph nodes in the subcarinal region measuring up to 1.2 cm in size. No enlarged hilar lymph nodes are appreciated on this noncontrast study. The heart is within normal limits in size. There are coronary artery calcifications present. No pericardial effusion is present. The thoracic aorta is normal in caliber. There is mild calcific plaque present. The liver is decreased in attenuation consistent with fatty infiltration. No significant focal abnormality is seen on this noncontrast study. The gallbladder appears contracted. The spleen is within normal limits in size. The pancreas appears to be within normal limits. The adrenal glands and kidneys are normal in size. No renal calculi or hydronephrosis is seen. No bladder wall thickening is noted. The prostate gland is enlarged measuring 5.5 cm in transverse dimension. The aorta is normal in caliber and there is moderate calcific plaque present. There are enlarged peripancreatic and periportal lymph nodes measuring up to 1.4 cm in transverse dimension which appears similar to the prior study. The stomach is moderately distended with food debris. The small bowel and colon are nondistended. The appendix appears to be within normal limits. There is no evidence for diverticulitis or colitis. No free intraperitoneal air or fluid is seen. No significant focal osseous abnormality is seen. IMPRESSION: 1. LIMITED NONCONTRAST STUDY. 2. MULTIPLE SMALL PULMONARY NODULES PRESENT AT BOTH LUNG APICES LIKELY RELATED TO CHRONIC PLEURAL AND PARENCHYMAL SCARRING ALTHOUGH NONSPECIFIC. RECOMMEND CLOSE FOLLOW-UP WITH REPEAT NONCONTRAST CT OF THE CHEST IN 6 MONTHS TIME. 3. MILDLY ENLARGED MEDIASTINAL LYMPH NODES. 4. ENLARGED PERIPANCREATIC AND PERIPORTAL LYMPH NODES UNCHANGED FROM THE PRIOR EXAM. 5. HEPATIC STEATOSIS.
[2018-01-25] MEDS ORDERED: PROCHLORPERAZINE INJ 5 MG/ML 2 ML VIAL IV PRN (19:08)
[2018-01-26] MEDS: chlordiazePOXIDE CAP* 25 MG PO SCH (08:41)
[2018-01-26] MEDS: Docusate CAP* 100 MG PO SCH ×2 (08:41→21:17)
[2018-01-26] MEDS: Folic Acid TAB* 1 MG PO SCH (08:42)
[2018-01-26] MEDS: Thiamine TAB* 100 MG TAB PO SCH (08:43)
[2018-01-26] MEDS: Nicotine PATCH 14 MG/24 HR* PATCH TRANSDERM SCH (08:48)
[2018-01-26] MEDS: Hydrocortisone 1% CREAM* 30 GM TUBE TOPICAL SCH ×3 (08:49→21:19)
[2018-01-26] MEDS: Enoxaparin(*) 40 MG/0.4 ML SYR SUBCUT SCH (11:34)
--- NOTE | 2018-01-26 13:18 | CONS ---
CONSULTATION REPORT: DATE OF CONSULT: 01/26/18 PROVIDER: Aliyah Fortune NP SUPERVISING PHYSICIAN: Lionel Valente MD JUSTIFICATION FOR CONSULT: The patient claims he has homicidal ideation upon admission to the medical unit. CHIEF COMPLAINT: "I want to dry out." HISTORY OF PRESENT ILLNESS: The patient is a 67-year-old male who is single and white with a history of alcohol abuse, who arrives to the hospital and declares he is homicidal, but not suicidal. It turns out this is not the truth. In fact, he would like simply to "dry out" and stop drinking. The precipitating event for his wanting to stop drinking is that he has stopped feeling good. At this point, he is unwilling to discuss what is going on in his life. His responses are terse. He does not make eye contact. He leaves the television on and the sound on close to his ear. In the hospital now, he appears frail. I have known him in the past in outpatient work and he is still irritable and cranky. He appears to be smaller and weaker. He states that he can hardly walk now even with a walker because his legs and hands are so shaky. I asked if this happened at home, he said it does, but that it goes away if he has an alcoholic beverage. He is depressed. His interest is very low. His energy is low. He has psychomotor retardation. He is not manic and he does not appear to be suffering from PTSD symptoms at this time. He does not appear to be anxious. PAST PSYCHIATRIC HISTORY: He has been admitted before in 1999, 2000, 2002, 2003 , 2004, and then in 2013 for behavioral health and at that point, it was often for depression and alcohol abuse. He is not taking any psychiatric meds at this time. He does not endorse having a TBI. He does not want to discuss trauma. PAST MEDICAL HISTORY: Please refer to current medical record. FAMILY HISTORY: He denies that either his mom or his dad's side has psychiatric history. SUBSTANCE ABUSE: He does smoke cigarettes. He does drink alcohol. He used to smoke pot 2 years ago, but he does not any more. He does not offer a reason why. He is not getting any treatment for these issues. 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 He was . He is no longer . He lives alone at this point and tends to be a lonely man. MENTAL STATUS EXAMINATION: This is a lyle haired man with lyle to white stubble on his face of a couple of days. He is frail. He is shaking. He appears to be cold or tremulous. He is calm. He is cooperative, although he is irritable. His speech is terse. He has a gravelly voice. His volume is low and he does not say much. He appears to be dysphoric. His affect is constricted. His thought processes are logical. Thought content appears to be focused on getting detoxified from alcohol. He is not homicidal or suicidal. He is not endorsing having any hallucinations. His insight is fair. His judgement is fair. He is alert and awake and oriented x3. His intellect appears to be average. DIAGNOSES: [place] I: Major depressive disorder. [place] II: Deferred. IMPRESSION: This is an aging 67-year-old man who endorsed homicidal ideation in order to get admitted to the hospital to be detoxed from alcohol. He is irritable and tired and somewhat uncomfortable due to that detoxification process. RECOMMENDATIONS: Gary should consider going to a rehab for alcohol and also given his frail condition, I defer to his medical team. Thank for this very interesting consultation. ALIYAH FORTUNE, KERA [id number]/[facility]PS #: [id number] NITA
--- NOTE | 2018-01-26 14:41 | CONS ---
NEUROLOGY CONSULTATION: DATE OF CONSULT: 01/26/18 LOCATION: He is an inpatient in room 418. REFERRING PROVIDER: Dr. Mix. CHIEF COMPLAINT: Weakness. HISTORY OF PRESENT ILLNESS: Gary Green is a 67-year-old right-handed man, who was admitted on 01/20/18 with alcohol withdrawal. He has a history of chronic alcoholism as well as bipolar disorder. He has apparently been noncompliant with medical and psychiatric care overtime. He was not on any medications at the time he came in. He had a markedly elevated alcohol level, elevated liver enzymes, and was detoxed. It has been noted that he remains tremulous, confused, and very weak with an unsteady gait. He has been using a walker since he got here. He is a poor historian, who admits to feeling unsteady and tremulous. He denies pain in his feet, legs, or hands. He denies numbness in his limbs. He denies neck pain or back pain. He feels unsteady, but not clearly weak. He tends to answer questions with one word responses, however. So far since he has been here, he has had a couple of metabolic abnormalities including hypomagnesemia, which was 1.5 when he came in and is up to 1.7, but has not been fully normalized. He has been given parenteral vitamins and also oral thiamine. His electrolytes have been fairly unremarkable other than a borderline low sodium at 137 upon presentation. His calcium has been normal. His liver enzymes have been elevated with AST 151 when he came in, down to 90 as of 01/24/18. An ammonia has not been checked. He has elevated total bilirubin at 1.3 when he came in, 1.5 as of 01/24/18. PAST MEDICAL HISTORY: Notable for chronic alcoholism, bipolar disorder, hepatitic C. MEDICATIONS: He was not taking any medications at the time of admission. ALLERGIES: He is said to be allergic to PENICILLIN, which gave a rash. FAMILY HISTORY: Notable for mother dying of ovarian cancer. He is not aware of any neuromuscular disorders in the family. REVIEW OF SYSTEMS: From the patient is nonproductive, but unreliable. He denies headache, neck pain, or back pain. He denies numbness in his limbs or pain in his joints or muscles. He is not aware of any falls. He denies prior head or neck injuries. There is no history of diabetes, heart disease, or endocrine disorders. PHYSICAL EXAMINATION: He is a disheveled, chronically ill-appearing man. He looks underweight. He has contractures of the 4th and 5th digits of both hands. His lungs reveal few wheezes bilaterally. Heart is in a regular rhythm and I not hear murmurs. Neck is supple. Carotid pulses are present and there are no cervical bruits. Oral mucosa is moist and atraumatic. Head is atraumatic. Neck range of motion is limited in lateral rotation and flexion, but not in painful. Temperature is 98.4, blood pressure 114/57, heart rate is in the 70s and seems regular. Respiratory rate is 16 and oxygen saturation is 98% on room air. Neurological Exam: Pupils are small at about 2.5 mm, reacting to light to 2 mm. Eye movements are choppy, but full. Visual harrell are full to confrontation. Funduscopic exam reveals sharp discs and arterial tortuosity. I do not see any hemorrhages. Facial musculature is symmetric. Facial sensation to light touch is symmetric. Jaw and mouth are tremulous. Speech is soft and mildly dysarthric. Palate rises symmetrically. Hearing is intact to tuning fork bilaterally. Motor exam reveals an increase in muscle tone in the legs, which seems mainly paratonic. There is increased tone in his arms also, which seems paratonic, but there is a cogwheel component bilaterally. He has good strength proximally in the upper extremities and has mild hip flexor weakness in the grade 4 range bilaterally. Ankle dorsiflexor strength is slightly weak at about 5- bilaterally and symmetrically. He has loss of vibratory sense, pin, and light touch in the feet to just below the knees. He has mild loss of vibratory sense in the fingers, but intact light touch. Reflexes are grade 2 at the biceps, triceps, brachioradialis, and knees. Ankle reflexes are absent. Plantar responses flexor on the right and extensor on the left. He is diffusely tremulous. I do not elicit any asterixis. There is dysmetria on [id number] maneuver bilaterally. He has limited range of motion about the hips, but poor [id number]-fp-[id number] maneuver bilaterally. When he attempts to stand, he becomes extremely tremulous. He is able to stand independently. He has a wide based gait and is afraid to take a step. He is somewhat lethargic, but remains awake through the visit. He is a very poor historian with unreliable responses. He is oriented only to person and that he is in the hospital. He knows he is in [place]. There is a paucity of verbal output and language is simple, but generally fluent. DIAGNOSTIC STUDIES/LAB DATA: Laboratory data includes a CT scan of the chest, abdomen and pelvis from 01/25/18, interpreted as showing multiple small pulmonary nodules which appeared to be chronic, enlarged peripancreatic and periportal lymph nodes unchanged from prior exam, hepatic steatosis. There is no neuro imaging that I can find in the chart. Laboratory data as mentioned above in the history of present illness. Additional laboratory data includes a normal TSH on 01/19/18 at 0.42. INR is elevated on 01/20/18 at 1.29. Serum alcohol level on admission on the evening of 01/19/18 was 297. Tox screen was otherwise negative. 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 He is likely malnourished and is receiving multivitamins parenterally and orally. He has some rigidity on his exam, but it appears to be more paratonia and I suspect is not related to cervical myelopathy, but that certainly needs to be considered. Recommend an MRI of the cervical spine and brain. Recommend additional blood work to include a vitamin B12 level, creatine kinase, syphilis antibodies, and ammonia level. I will follow him with you while he is here and reevaluate after his imaging and laboratory studies have been completed. [id number]/[facility] #: [id number] [facility]
--- NOTE | 2018-01-26 15:06 | PN ---
Subjective Date of Service: 01/26/18 Interval History: HOSPITALIST PROGRESS NOTE Patient seen and examined at bedside. Care reviewed and d/w Renetta Leiva RN. He c/o weakness, especially on his legs. Very shaky while walking. Family History: Unchanged from Admission Social History: Unchanged from Admission Past Medical History: Unchanged from Admission Objective Active Medications: Chlordiazepoxide (Librium Cap*) 25 mg PO DAILY [facility] Last Admin: 01/26/18 08:41 Dose: 25 mg Device (Nicotine Mouth Piece*) 1 each INH .USE WITH NICOTROL PRN PRN Reason: CRAVING Last Admin: 01/22/18 16:50 Dose: 1 each Docusate Sodium (Colace Cap*) 100 mg PO BID [facility] Last Admin: 01/26/18 08:41 Dose: 100 mg Enoxaparin Sodium (Lovenox(*)) 40 mg SUBCUT Q24H [facility] Last Admin: 01/26/18 11:34 Dose: Not Given Folic Acid (Folvite Tab*) 1 mg PO DAILY [facility] Last Admin: 01/26/18 08:42 Dose: 1 mg Hydrocortisone (Hytone Cream 1%*) 1 applic TOPICAL TID [facility] Last Admin: 01/26/18 13:33 Dose: Not Given Lorazepam (Ativan Inj*) 0 - 3 mg IV PUSH .PER [facility] PROTOCOL [facility] PRN Reason: Protocol Last Admin: 01/21/18 21:49 Dose: 1.5 mg Magnesium Hydroxide (Milk Of Magnesia Liq*) 30 ml PO Q6H PRN PRN Reason: CONSTIPATION Nicotine (Nicotine Patch 14 Mg/24 Hr*) 1 patch TRANSDERM DAILY [facility] Last Admin: 01/26/18 08:48 Dose: 1 patch Nicotine (Nicotine Inhaler*) 10 mg INH Q2H PRN PRN Reason: CRAVING Last Admin: 01/22/18 16:50 Dose: 10 mg Prochlorperazine Edisylate (Compazine Inj*) 5 mg IV Q6H PRN PRN Reason: NAUSEA Thiamine HCl (Vitamin B-1 Tab*) 100 mg PO DAILY [facility] Last Admin: 01/26/18 08:43 Dose: 100 mg Vital Signs - 8 hr 01/26/18 01/26/18 01/26/18 07:18 08:41 08:42 Temperature 98.2 F Pulse Rate 69 Respiratory 18 16 14 Rate Blood Pressure 100/61 (mmHg) O2 Sat by Pulse 98 Oximetry 01/26/18 01/26/18 11:34 11:42 Temperature 98.4 F Pulse Rate 62 Respiratory 16 16 Rate Blood Pressure 114/57 (mmHg) O2 Sat by Pulse 98 Oximetry Oxygen Devices in Use Now: None Appearance: Elderly male lying in bed in NAD. Eyes: No Scleral Icterus Ears/Nose/Mouth/Throat: Mucous Membranes Moist Neck: Trachea Midline Respiratory: Symmetrical Chest Expansion and Respiratory Effort, Clear to Auscultation Cardiovascular: RRR - Normal S1 and S2 Neurological: Alert and Oriented x 3 Result Diagrams: 01/24/18 07:58 01/24/18 07:58 Assess/Plan/Problems-Billing Assessment: Mr. Green is a 67yo M with PMH of Alcoholism, hepatitis C, bipolar disorder, who presented to ED with alcohol withdrawal. - Patient Problems (1) Bipolar disorder Comment: - Patient's initial ED visit was prompted by HI with no SI, and significant weight loss. He stated he was depressed, could not eat, and had lost >50lbs. He was seen by [facility] business excellence manager and recommendation was for [facility] admission, but no beds were available at that time and he stayed in the ED awaiting transfer. Unfortunately, during his wait he developed withdrawal and was admitted to the medical floor for further management. - His withdrawal is resolved, he denies SI/HI - will request MHU re-evaluation. (2) Weight loss Comment: - Patient reports >50lbs weight loss due to poor oral intake he associated with depression. - CT chest/abd/pelvis is negative. (3) Alcohol withdrawal Comment: - D/c WAM protocol and Librium taper. - Continue Thiamine supplementation. (4) Hepatitis C Comment: - For f/u with Dr. Cox as outpatient to discuss treatment of Hep C - compliance will be an issue. (5) Tobacco abuse Comment: - Continue Nicotine patch and inhaler. (6) Weakness Comment: - Neurology evaluation. (7) DVT prophylaxis Comment: - Lovenox. (8) Full code status Status and Disposition: Inpatient for management of alcohol withdrawal.
--- NOTE | 2018-01-26 16:10 | RAD ---
HISTORY: Confusion and unsteady gait COMPARISONS: None TECHNIQUE: The following sequences were obtained of the head: Sagittal T1-weighted images, axial T2-weighted images, axial FLAIR images, axial susceptibility weighted images, axial T1-weighted images. Additionally, axial diffusion-weighted images were obtained with calculated apparent diffusion coefficients.. FINDINGS: HEMORRHAGE/INFARCT: There is no hemorrhage or acute infarct. MASSES/SHIFT: There is no mass or shift. EXTRA-AXIAL SPACES/MENINGES: There are no extra-axial fluid collections. SULCI AND VENTRICLES: There is symmetrical involutional change of the ventricles and sulci. CEREBRUM: There are no focal parenchymal abnormalities. BRAINSTEM: There are no focal parenchymal abnormalities. CEREBELLUM: There are no focal parenchymal abnormalities. The cerebellar tonsils are normal in size and position. SELLA: The sella is normal. PINEAL: The pineal region is clear. CP ANGLE/TEMPORAL BONES: The labyrinthine structures are grossly normal. VESSELS: Normal flow-voids are noted within the visualized vertebral vasculature. DIFFUSION ABNORMALITIES: There are no diffusion abnormalities. PARANASAL SINUSES/MASTOIDS: The paranasal sinuses are clear. ORBITS: The orbits are unremarkable. BONES AND SOFT TISSUE: No bone or soft tissue abnormalities are noted. IMPRESSION: SYMMETRICAL INVOLUTIONAL CHANGES OF THE VENTRICLES AND SULCI APPEARS SLIGHTLY ADVANCED FOR THE PATIENT'S AGE. OTHERWISE THERE ARE NO ACUTE INTRACRANIAL ABNORMALITIES.
--- NOTE | 2018-01-26 16:29 | RAD ---
Indication: Confusion, weakness. Image sequences: Sagittal T1, T2, STIR, axial T2 and gradient echo images of the cervical spine were obtained. The study is limited due to motion artifact. The vertebral bodies appear normal in height. Normal bone marrow signal is noted. There is some atrophy in the cerebellum. The cervical spinal cord demonstrates no definite abnormal signal. There may be some minimal degenerative disc disease at C3-C4 and C4-C5 and C5-C6 without cord impingement. No foraminal stenosis is noted. IMPRESSION: Degenerative disc disease at multiple levels without evidence of spinal cord impingement. No abnormal signal is noted. Motion artifact degrades the images.
[2018-01-27] MEDS: Docusate CAP* 100 MG PO SCH ×2 (08:14→21:23)
[2018-01-27] MEDS: Thiamine TAB* 100 MG TAB PO SCH (08:15)
[2018-01-27] MEDS: chlordiazePOXIDE CAP* 25 MG PO SCH (08:15)
[2018-01-27] MEDS: Folic Acid TAB* 1 MG PO SCH (08:15)
[2018-01-27] MEDS: Nicotine PATCH 14 MG/24 HR* PATCH TRANSDERM SCH (08:15)
[2018-01-27] MEDS: Hydrocortisone 1% CREAM* 30 GM TUBE TOPICAL SCH ×3 (08:17→21:22)
--- NOTE | 2018-01-27 09:39 | PN ---
Subjective Date of Service: 01/27/18 Interval History: No reported issues overnight. Patient slept much of the time. I spoke with the nurse this morning who notes no issues. He is sitting up this am but refuses to let me exam him. MRI Brain: Involutional changes. No acute issues. Images reviewed and agree MRI C-spine: Negative for spinal cord changes, mild DDD Thyroid: WNL B12: WNL RPR: Pending Ammonia: WNL CK: WNL Family History: Unchanged from Admission Social History: Unchanged from Admission Past Medical History: Unchanged from Admission Objective Active Medications: Chlordiazepoxide (Librium Cap*) 25 mg PO DAILY [facility] Last Admin: 01/27/18 08:15 Dose: 25 mg Device (Nicotine Mouth Piece*) 1 each INH .USE WITH NICOTROL PRN PRN Reason: CRAVING Last Admin: 01/22/18 16:50 Dose: 1 each Docusate Sodium (Colace Cap*) 100 mg PO BID [facility] Last Admin: 01/27/18 08:14 Dose: 100 mg Enoxaparin Sodium (Lovenox(*)) 40 mg SUBCUT Q24H [facility] Last Admin: 01/26/18 11:34 Dose: Not Given Folic Acid (Folvite Tab*) 1 mg PO DAILY [facility] Last Admin: 01/27/18 08:15 Dose: 1 mg Hydrocortisone (Hytone Cream 1%*) 1 applic TOPICAL TID [facility] Last Admin: 01/27/18 08:17 Dose: Not Given Lorazepam (Ativan Inj*) 0 - 3 mg IV PUSH .PER [facility] PROTOCOL [facility] PRN Reason: Protocol Last Admin: 01/21/18 21:49 Dose: 1.5 mg Magnesium Hydroxide (Milk Of Magnesia Liq*) 30 ml PO Q6H PRN PRN Reason: CONSTIPATION Nicotine (Nicotine Patch 14 Mg/24 Hr*) 1 patch TRANSDERM DAILY [facility] Last Admin: 01/27/18 08:15 Dose: 1 patch Nicotine (Nicotine Inhaler*) 10 mg INH Q2H PRN PRN Reason: CRAVING Last Admin: 01/22/18 16:50 Dose: 10 mg Prochlorperazine Edisylate (Compazine Inj*) 5 mg IV Q6H PRN PRN Reason: NAUSEA Thiamine HCl (Vitamin B-1 Tab*) 100 mg PO DAILY [facility] Last Admin: 01/27/18 08:15 Dose: 100 mg Vital Signs 01/26/18 01/26/18 01/26/18 11:34 11:42 16:24 Temperature 98.4 F Pulse Rate 62 64 Respiratory 16 16 16 Rate Blood Pressure 114/57 118/47 (mmHg) O2 Sat by Pulse 98 98 Oximetry 01/26/18 01/26/18 01/26/18 16:28 18:48 20:00 Temperature 98.6 F 99.9 F Pulse Rate 66 Respiratory 24 18 Rate Blood Pressure 114/54 (mmHg) O2 Sat by Pulse 96 Oximetry 01/26/18 01/27/18 01/27/18 23:16 02:56 07:17 Temperature 98.9 F 98.3 F 98.9 F Pulse Rate 68 62 60 Respiratory 16 22 18 Rate Blood Pressure 111/49 116/57 97/40 (mmHg) O2 Sat by Pulse 95 97 95 Oximetry 01/27/18 08:15 Temperature Pulse Rate Respiratory 14 Rate Blood Pressure (mmHg) O2 Sat by Pulse Oximetry Oxygen Devices in Use Now: None Neurology Exam: General: The patient refuses exam this am. Limited exam. Minimally verbal Awake, somnolent, sitting up HEENT: Normocephalic/atraumatic, sclera anicteric Chest: Clear to auscultation bilaterally Cardiovascular: Regular rate and rhythm without murmurs, rubs, gallops Neurological Findings: Speech: fluent without significant dysarthria Cranial Nerve: Grossly intact, patient was non-compliant. Face appears symmetric, EOM appear intact, PERRL Motor: Moving all extremities but would not comply Sensation: Could not reliable test Deep Tendon Reflex: Could not test Tremors: No obvious resting tremors Gait: Would not ambulate Result Diagrams: 01/24/18 07:58 01/24/18 07:58 Additional Lab and Data: Lab Results 01/19/18 01/19/18 01/19/18 Range/Units 18:25 18:25 21:23 WBC 8.8 (3.5-10.8) 10^3/ul RBC 4.11 (4.0-5.4) 10^6/ul Hgb 14.0 (14.0-18.0) g/dl Hct 41 L (42-52) % MCV 99 H (80-94) fL MCH 34 H (27-31) pg MCHC 34 (31-36) g/dl RDW 13 (10.5-15) % Plt Count 127 L (150-450) 10^3/ul MPV 8.1 (7.4-10.4) um3 Neut % (Auto) 52.6 (38-83) % Lymph % (Auto) 30.5 (25-47) % [place] % (Auto) 11.7 H (0-7) % Eos % (Auto) 4.0 (0-6) % Baso % (Auto) 1.2 (0-2) % Absolute Neuts (auto) 4.6 (1.5-7.7) 10^3/ul Absolute Lymphs (auto) 2.7 (1.0-4.8) 10^3/ul Absolute Monos (auto) 1.0 H (0-0.8) 10^3/ul Absolute Eos (auto) 0.4 (0-0.6) 10^3/ul Absolute Basos (auto) 0.1 (0-0.2) 10^3/ul Absolute Nucleated RBC 0 10^3/ul Nucleated RBC % 0 Sodium 132 L (139-145) mmol/L Potassium 4.4 (3.5-5.0) mmol/L Chloride 95 L (101-111) mmol/L Carbon Dioxide 28 (22-32) mmol/L Anion Gap 9 (2-11) mmol/L BUN 5 L (6-24) mg/dL Creatinine 0.68 (0.67-1.17) mg/dL Est GFR ( Amer) 150.5 (>60) Est GFR (Non-Af Amer) 117.0 (>60) BUN/Creatinine Ratio 7.4 L (8-20) Glucose 104 H (70-100) mg/dL Calcium 9.2 (8.6-10.3) mg/dL Total Bilirubin 1.20 H (0.2-1.0) mg/dL AST 151 H (13-39) U/L ALT 64 H (7-52) U/L Alkaline Phosphatase 56 (34-104) U/L Total Protein 8.3 (6.4-8.9) g/dL Albumin 3.9 (3.2-5.2) g/dL Globulin 4.4 H (2-4) g/dL Albumin/Globulin Ratio 0.9 L (1-3) TSH 0.42 (0.34-5.60) mcIU/mL Urine Color Yellow Urine Appearance Clear Urine pH 6.0 (5-9) Ur Specific [place] 1.004 L (1.010-1.030) Urine Protein Negative (Negative) Urine Ketones Negative (Negative) Urine Blood Negative (Negative) Urine Nitrate Negative (Negative) Urine Bilirubin Negative (Negative) Urine Urobilinogen Positive A (Negative) Ur Leukocyte Esterase Negative (Negative) Urine Glucose Negative (Negative) Salicylates < 2.50 (<30) mg/dL Acetaminophen < 15 mcg/mL Serum Alcohol 297 H (<10) mg/dL Assessment/Plan Assessment: 67 y/o with history of Hep C, Bipolar, EtOH abuse, admitted with acute intoxication, controlled w/d. Memory problems/AMS, Gait instability. Limited exam this am. 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 No central cause identified. He is also likely suffering from the long term care administrator cognitive effects of EtOH use. --Neurologic workup negative. Follow up RPR --Continued medical/supportive management: --EtOH cessation with o/p rehab if he will commit --Needs fpc Thiamine/MVI --Outpatient follow up for PSA and ongoing medical issues. I expect continued neurologic decline if the patient continues to consume large quantities of EtOH. No further workup necessary at this time. I will be happy to follow the patient long-term in clinic once his acute issues have improved. I will sign off for now but remain available for any further concerns or issues.
[2018-01-27] MEDS: Enoxaparin(*) 40 MG/0.4 ML SYR SUBCUT SCH (14:36)
--- NOTE | 2018-01-27 14:43 | PN ---
Subjective Date of Service: 01/27/18 Interval History: HOSPITALIST PROGRESS NOTE Patient seen and examined at bedside. He offers no complaints at this time. Family History: Unchanged from Admission Social History: Unchanged from Admission Past Medical History: Unchanged from Admission Objective Active Medications: Chlordiazepoxide (Librium Cap*) 25 mg PO DAILY [facility] Last Admin: 01/27/18 08:15 Dose: 25 mg Device (Nicotine Mouth Piece*) 1 each INH .USE WITH NICOTROL PRN PRN Reason: CRAVING Last Admin: 01/22/18 16:50 Dose: 1 each Docusate Sodium (Colace Cap*) 100 mg PO BID [facility] Last Admin: 01/27/18 08:14 Dose: 100 mg Enoxaparin Sodium (Lovenox(*)) 40 mg SUBCUT Q24H [facility] Last Admin: 01/27/18 14:36 Dose: Not Given Folic Acid (Folvite Tab*) 1 mg PO DAILY [facility] Last Admin: 01/27/18 08:15 Dose: 1 mg Hydrocortisone (Hytone Cream 1%*) 1 applic TOPICAL TID [facility] Last Admin: 01/27/18 14:36 Dose: Not Given Lorazepam (Ativan Inj*) 0 - 3 mg IV PUSH .PER [facility] PROTOCOL [facility] PRN Reason: Protocol Last Admin: 01/21/18 21:49 Dose: 1.5 mg Magnesium Hydroxide (Milk Of Magnesia Liq*) 30 ml PO Q6H PRN PRN Reason: CONSTIPATION Nicotine (Nicotine Patch 14 Mg/24 Hr*) 1 patch TRANSDERM DAILY [facility] Last Admin: 01/27/18 08:15 Dose: 1 patch Nicotine (Nicotine Inhaler*) 10 mg INH Q2H PRN PRN Reason: CRAVING Last Admin: 01/22/18 16:50 Dose: 10 mg Prochlorperazine Edisylate (Compazine Inj*) 5 mg IV Q6H PRN PRN Reason: NAUSEA Thiamine HCl (Vitamin B-1 Tab*) 100 mg PO DAILY [facility] Last Admin: 01/27/18 08:15 Dose: 100 mg Vital Signs - 8 hr 01/27/18 01/27/18 01/27/18 07:17 08:15 10:07 Temperature 98.9 F Pulse Rate 60 Respiratory 18 14 16 Rate Blood Pressure 97/40 (mmHg) O2 Sat by Pulse 95 Oximetry Oxygen Devices in Use Now: None Appearance: Elderly gentleman lying in bed in NAD, reading the newspaper. Eyes: No Scleral Icterus Ears/Nose/Mouth/Throat: Mucous Membranes Moist Neck: Trachea Midline Respiratory: Symmetrical Chest Expansion and Respiratory Effort, Clear to Auscultation Cardiovascular: NL Sounds; No Murmurs; No JVD, RRR Neurological: Alert and Oriented x 3 Result Diagrams: 01/24/18 07:58 01/24/18 07:58 Assess/Plan/Problems-Billing Assessment: 67 y/o with history of Hep C, Bipolar, EtOH abuse, admitted with acute intoxication, controlled w/d. Memory problems/AMS, Gait instability. Limited exam this am. 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 No central cause identified. He is also likely suffering from the manager air cognitive effects of EtOH use. --Neurologic workup negative. Follow up RPR --Continued medical/supportive management: --EtOH cessation with o/p rehab if he will commit --Needs assisted Thiamine/MVI --Outpatient follow up for PSA and ongoing medical issues. I expect continued neurologic decline if the patient continues to consume large quantities of EtOH. No further workup necessary at this time. I will be happy to follow the patient long-term in clinic once his acute issues have improved. I will sign off for now but remain available for any further concerns or issues. - Patient Problems (1) Bipolar disorder Comment: - Patient's initial ED visit was prompted by HI with no SI, and significant weight loss. He stated he was depressed, could not eat, and had lost >50lbs. He was seen by MH senior sales manager and recommendation was for BSU admission, but no beds were available at that time and he stayed in the ED awaiting transfer. Unfortunately, during his wait he developed withdrawal and was admitted to the medical floor for further management. - His withdrawal is resolved, he denies SI/HI - MHU re-evaluation appreciated - no indication for MHU admission at this time. (2) Weight loss Comment: - Patient reports >50lbs weight loss due to poor oral intake he associated with depression. - CT chest/abd/pelvis is negative. - PSA is borderline - will need w/u as outpatient. (3) Alcohol withdrawal Comment: - D/c WAM protocol and Librium taper. - Continue Thiamine supplementation. (4) Hepatitis C Comment: - For f/u with Dr. Cox as outpatient to discuss treatment of Hep C - compliance will be an issue. (5) Tobacco abuse Comment: - Continue Nicotine patch and inhaler. (6) Weakness Comment: - Neurology evaluation appreciated - w/u compatible with alcohol related peripheral neuropathy. (7) DVT prophylaxis Comment: - Lovenox. (8) Full code status Status and Disposition: Inpatient for management of alcohol withdrawal. Will need SNF placement for rehab.
[2018-01-28] MEDS: Hydrocortisone 1% CREAM* 30 GM TUBE TOPICAL SCH ×2 (09:57→14:03)
[2018-01-28] MEDS: Folic Acid TAB* 1 MG PO SCH (09:57)
[2018-01-28] MEDS: Docusate CAP* 100 MG PO SCH (09:57)
[2018-01-28] MEDS: Thiamine TAB* 100 MG TAB PO SCH (09:57)
[2018-01-28] MEDS: Nicotine PATCH 14 MG/24 HR* PATCH TRANSDERM SCH (09:58)
[2018-01-28 11:59] VITALS: BP 123/61
[2018-01-28] MEDS: Enoxaparin(*) 40 MG/0.4 ML SYR SUBCUT SCH (14:03)
--- NOTE | 2018-01-28 16:56 | DS ---
CC: [facility] DATE OF ADMISSION: 01/20/2018. DATE OF DISCHARGE: 01/28/2018. PRIMARY CARE PHYSICIAN: The patient has no primary care provider at this time. DISCHARGE DIAGNOSES: 1. Alcohol withdrawal. 2. Significant weight loss. 3. Hepatitis C. 4. Bipolar disorder. 5. Physical deconditioning. 6. 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 7. Tobacco abuse. MEDICATIONS: 1. Colace 100 mg p.o. b.i.d. as needed for constipation. 2. Lovenox 40 mg subcutaneous daily for DVT prophylaxis until the patient is more mobile. 3. Folic acid 1 mg p.o. daily. 4. Hydrocortisone 1% cream to rash area b.i.d. 5. Milk of Magnesium 30 ml p.o. q.6 hours prn constipation. 6. Nicotine patch 14 mg topical daily. 7. Thiamine 100 mg p.o. daily. HOSPITAL COURSE: Mr. Green is a 67-year-old male with a past medical history as stated above who p resented to the emergency room on January 19 with complaints of homicidal ideation. He was seen in c onsultation by [facility] and the recommendation was for BSU admission. As the unit was full, the recommendation was for transfer to another hospital. [facility], he developed alcohol withdrawal and was admitted to the Telemetry floor. The patient wa s placed on the [facility] protocol and he had resolution of his withdrawal. The patient was noted to be we ak and to have an unsteady broad based gait. For that reason, a Neurology consultation was requested and the patient was seen by Dr. Gerber. 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 He also felt that the patient was likely malnourished and since he has some rigidity on his exam, he felt the patient could be paratonia and not a cervical myelopathy. He recommended a work-u p with MRI of the brain and cervical spine, and vitamin B12, CPK, RPR, and ammonia levels. MRI of the brain showed symmetrical involutional changes of the ventricles and sulci appears slightly advanced for the patient's age. Otherwise there are no acute intracranial abnormalities. MRI of the cervical spine showed degenerative disk disease at multiple levels without evidence of spi nal cord impingement. No abnormal signal is noted. There is motion artifact that degrades the image s. He was seen in follow-up by Neurology (Dr. Marcelino) and since the rest of his work-up had been negative, including a normal ammonia of 33, normal CPK of 21, normal B12 of 469, and a negative RPR, he felt t hat the patient's symptoms were most likely secondary to an alcoholic peripheral neuropathy and also long-term cognitive effects of alcohol use. He felt that the patient needed long-term thiamine/multi vitamin, alcohol cessation, and continued medical support. He expected that his neurological decline would continue if the patient continues to consume large quantities of alcohol and he did not feel a ny further work-up was necessary at this time. He will be happy to follow the patient as an outpatie nt after discharge from rehab. The patient also had reported weight loss greater than 50 that he thinks is secondary to his depressi on and poor oral intake. He had a CT of the chest, abdomen and pelvis that was a limited noncontrast study. It showed multiple small pulmonary nodules in both lung apices likely related to chronic ple ural and parenchymal scarring, although nonspecific. Recommend close follow-up with repeat noncontra st CT of the chest in six months time. Mildly enlarged mediastinal lymph nodes. Enlarged peripancre atic and periportal lymph nodes, unchanged from his prior CT from March 2012. Hepatic steatosis. The patient was also noted to have a borderline PSA of 4.02. He will need further work-up as an outp atient for his weight loss, especially with concerns for malignancy. The patient has a family histor y of ovarian cancer only and has never had a colonoscopy, so after he is done with his rehabilitation process, he will need to follow-up with a primary care provider to continue investigation for malign adolfo as source of his weight loss. His PSA is only slightly elevated from a limit of 4, but this also needs to be followed. The patient was found to be hepatitis C positive and he will need follow-up with Dr. Zaragoza as an o utpatient to plan treatment if he is willing to be compliant at that time. When the patient's withdrawal resolved, he was seen in follow-up by the Mental Health Unit (Aliyah barkley, [facility]) and her impression was that the patient did not require BSU admission at this point as he had no suicidal or homicidal ideation at this point. She felt that he would benefit of going to [facility] for [facility], but the patient is not interested at this time. He is agreeable with physical rehab to work on his gait issues. The patient is medically stable to be discharged to [facility] at this time. He will be discharged on Lovenox for DVT prophylaxis as there is a suspicion for possible malignancy and he is not very activ e at this time, but as he continues to work with physical therapy and because more mobile, Lovenox ca n be discontinued. PHYSICAL EXAMINATION: General: The patient is an elderly, thin male who appears older than stated ag e, lying in bed in no acute distress. Vital Signs: Temperature 98.3, heart rate 65, respiratory rat e 16, oxygen saturation 98 percent on room air, blood pressure 123/61. CVS: Normal S1, S2. Regular rate and rhythm. Chest: Breath sounds present bilaterally with no added sounds. Abdomen: Soft, b owel sounds are present. Extremities: No edema. Neuro: He is alert and oriented times three. Able to move all four extremities. DIET: Regular diet. ACTIVITY: Continue PT/OT as tolerated. DISPOSITION: To [facility]. STATUS WHILE IN THE HOSPITAL: Inpatient. Please keep in mind this is a summarized version of this patient's hospital stay. If you need more in formation, please feel free to call me at or please obtain the full medical records. Approximately 45 minutes were spent to complete this discharge. [id number]/CPS #: [id number]
== END 2018-01-28 17:40 | DRG 897 ==
LOC: ED 17:45 → MED 01-20 10:42 → OBSVTOIN 01-21 15:30
PROVIDERS: ADMIT Internal Medicine; ATTEND Internal Medicine
DX: F10.239 Alcohol dependence with withdrawal, unspecified (principal); E46 Unspecified protein-calorie malnutrition; F14.90 Cocaine use, unspecified, uncomplicated; F12.90 Cannabis use, unspecified, uncomplicated; F19.94 Other psychoactive substance use, unspecified with psychoactive substance-induced mood disorder; F31.9 Bipolar disorder, unspecified; F17.210 Nicotine dependence, cigarettes, uncomplicated; E83.42 Hypomagnesemia; R53.1 Weakness; F10.129 Alcohol abuse with intoxication, unspecified; R45.850 Homicidal ideations; B19.20 Unspecified viral hepatitis C without hepatic coma; G62.1 Alcoholic polyneuropathy; M50.30 Other cervical disc degeneration, unspecified cervical region; R91.8 Other nonspecific abnormal finding of lung field; Z88.0 Allergy status to penicillin; Z80.41 Family history of malignant neoplasm of ovary; Z23 Encounter for immunization; Z91.14 Patient's other noncompliance with medication regimen; Z68.21 Body mass index [BMI] 21.0-21.9, adult
CPT/HCPCS: 36415; 70551; 71250; 72141; 74176; 80053; 80307; 80320; 80329; 81003; 82140; 82550; 82607; 83735; 84153; 84443; 85025; 85060; 85610; 86592; 86803; 87040; 90686; 90732; 99285; A9270-GY; G0103; G0378; G0480; G8978-GP-CL; G8979-GP-CJ; J0780; J1650; J2060; J3411; J3475

== ENCOUNTER 2018-09-12 11:11 | Emergency (ER) | payer MEDICARE ==
[2018-09-12 11:19] VITALS: BP 123/66
--- NOTE | 2018-09-12 12:01 | UC ---
Cardiac HPI - HPI Summary HPI Summary: 67-year-old male presents with complaints of left sided chest tenderness. States for the past 3 months he has noted a tender mass beneath his left nipple without discharge. Denies fever, chills, dizziness, weakness, chest pain, palpitations, shortness of breath, cough, diaphoresis, skin changes, erythema, or lesions. Denies history of HTN, CAD, dyslipidemia, or cancer. - History of Current Complaint Chief Complaint: UCGeneralIllness Stated Complaint: CHEST SORENESS Time Seen by Provider: 09/12/18 11:40 Hx Obtained From: Patient Pain Intensity: 5 - Allergy/Home Medications Allergies/Adverse Reactions: Allergies Allergy/AdvReac Type Severity Reaction Status Date / Time Penicillins Allergy Rash Verified 09/12/18 11:20 Home Medications: Home Medications NK [No Home Medications Reported] 09/12/18 [History Confirmed 09/12/18] PMH/Surg Hx/FS Hx/Imm Hx Previously Healthy: Yes Psychological History: Bipolar Disorder - Surgical History Surgical History: None - Family History Known Family History: Positive: Cardiac Disease - Paternal grandfather ( [place] 70's), brother [place] (56 yo) Negative: Hypertension, Respiratory Disease, Other - Cancer - Social History Occupation: Retired Lives: Alone Alcohol Use: Daily Substance Use Type: None Smoking Status (MU): Heavy Every Day Tobacco Smoker Type: Cigarettes Have You Smoked in the Last Year: Yes - Immunization History Most Recent Influenza Vaccination: unk Most Recent Pneumonia Vaccination: unk Review of Systems All Other Systems Reviewed And Are Negative: Yes Constitutional: Negative: Fever, Chills Skin: Positive: Other - See HPI. Negative: Rash Respiratory: Negative: Shortness Of Breath, Cough Cardiovascular: Negative: Palpitations, Chest Pain Gastrointestinal: Negative: Abdominal Pain, Vomiting, Diarrhea, Nausea Is Patient Immunocompromised?: No Physical Exam - Summary Physical Exam Summary: GENERAL APPEARANCE: Well developed, well nourished, alert and cooperative, and appears to be in no acute distress. BREAST: Tender, circumscribed, firm, mobile 4-5 cm mass immediately below the left nipple. No nipple discharge. No axillary lymphadenititis. CARDIAC: Normal S1 and S2. No S3, S4 or murmurs. Rhythm is regular. There is no peripheral edema, cyanosis or pallor. Extremities are warm and well perfused. Capillary refill is less than 2 seconds. LUNGS: Clear to auscultation and percussion without rales, rhonchi, wheezing or diminished breath sounds. ABDOMEN: Positive bowel sounds. Soft, nondistended, nontender. No guarding or rebound. No masses or hepatosplenomegally. MUSKULOSKELETAL: ROM intact to all extremities. No joint erythema or tenderness. Normal muscular development. Normal gait. SKIN: Skin normal color, texture and turgor with no lesions or eruptions. Triage Information Reviewed: Yes Vital Signs: Initial Vital Signs Temp 98 F 09/12/18 11:16 Pulse 72 09/12/18 11:16 Resp 18 09/12/18 11:16 BP 123/66 09/12/18 11:16 Pulse Ox 100 09/12/18 11:16 Vital Signs Reviewed: Yes Diagnostics - EKG Cardiac Rate: NL - rate 67 Cardiac Rhythm: Sinus: Normal Ectopy: None ST Segment: Normal EKG Comparison: No Significant Change - Compared to EKG 04/06/2012 Summary of EKG Findings: NSR. Borderline right axis deviation otherwise normal. - Assessment/Plan Course Of Treatment: 67-year-old male presents with complaints of left sided chest tenderness. States for the past 3 months he has noted a tender mass beneath his left nipple without discharge. Denies fever, chills, dizziness, weakness, chest pain, palpitations, shortness of breath, cough, diaphoresis, skin changes, erythema, or lesions. Afebrile. VSS. Exam reveals a tender, circumscribed, firm, mobile 4-5 cm mass immediately below the left nipple without discharge or axillary lymphadenititis. EKG NSR without ectopy. No significant changes when compared to previous EKG from 04/06/2012. Suspect pain is relate to the breast mass. With the upcoming holidays it will be difficult to get patient scheduled for urgent evaluation of the mass therefore have provided him with referral to surgery as well as the [facility]. He is to call Friday morning to see which clinic can get him in soonest. Warning symptoms reviewed with patient. Verbalizes understanding and agrees with POC. - Differential Diagnoses - Chest Pain Differential Diagnosis/HQI/PQRI: ACS, Chest Wall, Lower Respiratory Infection - Clinical Impression Provider Diagnosis: Left breast mass Discharge - Sign-Out/Discharge Documenting (check all that apply): Patient Departure All imaging exams completed and their final reports reviewed: No Studies - Discharge Plan Condition: Stable Disposition: HOME Patient Education Materials: Breast Mass (ED) Referrals: No Primary Care Phys,NOPCP [Primary Care Provider] - [facility] [Outside] - 7 Days Jeison Valles MD [Medical Doctor] - 7 Days Additional Instructions: You have a mass in the left breast that is concerning unfortunately we do not have the capability to evaluate this in the clinic today. I am providing you with a referral to the [facility] as well as general surgery for further evaluation. Please call first thing Friday morning to arrange for appointment. Seek immediate medical attention in the emergency room if you develop fever greater than 100.5 F, have worsening chest pain, shortness of breath, weakness, dizziness, or any worsening of symptoms. - Billing Disposition and Condition Condition: STABLE Disposition: Home
== END 2018-09-12 12:08 | disposition home or self-care (01) ==
LOC: UCEAST 11:11
DX: N63.20 Unspecified lump in the left breast, unspecified quadrant (principal); F17.210 Nicotine dependence, cigarettes, uncomplicated; Z88.0 Allergy status to penicillin
CPT/HCPCS: 93005; 99211; G0463

== ENCOUNTER 2019-03-20 10:05 | Emergency (ER) | payer MEDICARE ==
--- OUTSIDE RECORDS SUMMARY | 2019-03-20 10:11 | XMS REPORT | Continuity of Care Document ---
:1950 External Reference #:[id number] Author Name Yasmeen Rich Care Team Providers Name Role Phone Eddie Lopez MD Primary Care Physician Unavailable Payers Date Identification Numbers Payment Provider Subscriber Expires: 2018 Policy Number: [id number] Medicare George Dusseau PayID: [id number] [address] [place] [address] Effective: 2018 Policy Number: [id number] Medicare Blue Ppo [facility] PayID: [id number] [address] [place] [address] Expires: 2017 Policy Number: [id number] Medicare George Dusseau PayID: [id number] [address] [place] [address] Expires: 2016 Policy Number: [id number] [facility] Number: [id number] [address] PayID: [id number] [place] [address] Problems Active Problems Provider Date Chronic hepatitis C Eddie Lopez MD Onset: 09/21/2018 Note: present [address] Morel; GT 1A 2.5 million Sep 2018 Chronic alcoholism in remission Eddie Lopez MD Onset: 09/21/2018 Note: Dr Hills admission Aug 2000 refers to a rehab in 1993 and also his ability to complete his work while drinking steadily; many psychiatric admissions (2000, 2004) and 2011 and January 2018 intoxication admissions with STEPHON 297 January 2018 (only other level <10 10/09/12); urine tox screen January 2018- no other drugs Weight decreased Eddie Lopez MD Onset: 09/21/2018 Cerebral degeneration associated with another Eddie Lopez MD Onset: 09/21/2018 disorder Tobacco user Eddie Lopez MD Onset: 09/21/2018 Lump in left breast Eddie Lopez MD Onset: 09/21/2018 Other nonspecific abnormal finding of lung Eddie Lopez MD Onset: 09/21/2018 field Bipolar disorder Adryan Arciniega MD Onset: 10/22/1999 Note: several admissions to [place] 2 early Polyp of colon Adryan Arciniega MD Onset: 11/02/2018 Note: 2 TAs this date Family History Date Family Member(s) Observation Comments Father due to Passed in () his sleep in his 60s. Mother due to Ovarian () - 60's Cancer Siblings 7 pt 2nd oldest Second Brother due to AR () : (age 56 First Sister due to Cancer unknown Years) Social History Type Date Description Comments Sex Unknown Lives With Alone in 2019 on [employer]. ETOH Use 11/03/2018 Consumes 5 beers per day consistent with other histories in 2017- Tobacco Use Start: Unknown Heavy tobacco smoker (more 1/2 ppd x 50 yrs than 10 cigarettes/day) Smoking Status Reviewed: 03/02/19 Heavy tobacco smoker (more 1/2 ppd x 50 yrs than 10 cigarettes/day) Allergies, Adverse Reactions, Alerts Active Allergies Reaction Severity Comments Date Penicillin rash 09/21/2018 Medications Active Medications SIG Qnty Indications Ordering Provider Date No Active Medications Unknown 03/02/2019 History Medications Mavyret 3 tabs by mouth 84tabs Henri Euceda 2018 - 100-40mg once daily (started Jesus Cox 03/02/2019 Tablets 01/03/19) Suprep Bowel Prep Take according to 354units Adryan Le 10/07/2018 - Kit your physician's MD Demian 11/09/2018 instructions the 17.5-3.13-1.6GM/17 day before the 7ML Solution procedure. Split the dose as directed. No Active Unknown 09/21/2018 - Medications 09/21/2018 Nicotine use daily. 28units F17.210 Eddie Lopez MD 09/21/2018 - Transdermal System 01/27/2019 Step 2 14mg/24HR Patches 24HR Vital Signs Date Vital Result Comment 03/02/2019 11:37am Height 72 inches 6'0" Weight 166.00 lb Heart Rate 65 /min BP Systolic Sitting 128 mmHg BP Diastolic Sitting 78 mmHg O2 % BldC Oximetry 97 % BMI (Body Mass Index) 22.5 kg/m2 01/28/2019 11:00am Height 72 inches 6'0" Weight 169.25 lb Heart Rate 72 /min BP Systolic Sitting 136 mmHg BP Diastolic Sitting 80 mmHg Respiratory Rate 14 /min Body Temperature 98.6 F BMI (Body Mass Index) 23.0 kg/m2 12/25/2018 10:16am Height 72 inches 6'0" Weight 171.00 lb Heart Rate 68 /min BP Systolic 126 mmHg BP Diastolic 87 mmHg Respiratory Rate 20 /min Body Temperature 97.6 F O2 % BldC Oximetry 99 % BMI (Body Mass Index) 23.2 kg/m2 12/08/2018 10:52am Height 72 inches 6'0" Weight 169.00 lb Heart Rate 72 /min BP Systolic Sitting 132 mmHg BP Diastolic Sitting 80 mmHg Respiratory Rate 14 /min Body Temperature 98.5 F BMI (Body Mass Index) 22.9 kg/m2 11/10/2018 10:43am Height 72 inches 6'0" Weight 172.00 lb Heart Rate 60 /min BP Systolic Sitting 138 mmHg BP Diastolic Sitting 72 mmHg Respiratory Rate 14 /min Body Temperature 97.6 F BMI (Body Mass Index) 23.3 kg/m2 10/22/2018 12:12pm Height 72 inches 6'0" Weight 174.38 lb Heart Rate 55 /min BP Systolic 139 mmHg BP Diastolic 70 mmHg Respiratory Rate 18 /min Body Temperature 97.2 F O2 % BldC Oximetry 97 % BMI (Body Mass Index) 23.6 kg/m2 09/30/2018 9:51am Height 72 inches 6'0" Weight 167.00 lb Heart Rate 66 /min BP Systolic 110 mmHg BP Diastolic 64 mmHg Respiratory Rate 18 /min Body Temperature 96.8 F Pain Level 4 dull pain in lower quadrant of abdomen O2 % BldC Oximetry 96 % BMI (Body Mass Index) 22.6 kg/m2 09/21/2018 10:07am Weight 166.00 lb pt states wgt loss 0f 30#in 12 months Heart Rate 58 /min BP Systolic 126 mmHg BP Diastolic 74 mmHg Respiratory Rate 16 /min Body Temperature 97.8 F Pain Level 0 O2 % BldC Oximetry 97 % Results Test Date Facility Test Result H/L Range Note Laboratory test [facility] Hepatitis C Undetected Undetected 1 finding [address] Rna Quant IU/[place] [address] [phone] HCV Rna [facility] HCV NS5a 1a Genotype 1 Ns5a [address] [place] [address] [phone] HCV Daclatasvir Resistance NOT PREDICTED HCV Ledipasvir Resistance NOT PREDICTED Ombitasvir Resistance NOT PREDICTED HCV Elbasvir Resistance NOT PREDICTED HCV Velpatasvir Resistance NOT PREDICTED 2 HIV 1/2 AB 11/10/2018 [facility] HIV 1 2 Nonreactive Nonreactive [address] [place] [address] [phone] Laboratory 11/10/2018 [facility] Hepatitis B Nonreactive Nonreactive test finding [address] [place] [address] [phone] Fibro 11/10/2018 [facility] FibroTest 0.81 Test-Actitest, [address] [place] [address] [phone] FibroTest Stage F4 FibroTest Interpretation severe fibrosis 4 ActiTest Score 0.48 ActiTest Grade A1-A2 ActiTest Interpretation minimal activity 5 FibroTest-ActiTest Comment See Comment 6 [employer] Serial Number [id number] Apolipoprotein A1, S 121 mg/dL >=120 Qiahr-0-Zzfesrwdpyqhf, S 327 mg/dL Abnormal 100 - 280 Haptoglobin, S 75 mg/dL 30 - 200 Alanine Aminotransferase (Alt) 51 U/L 7-55 Gamma Glutamyltransferase GGT 76 U/L Abnormal 8 - 61 Bilirubin, Total, S 0.7 mg/dL <=1.2 7 Laboratory test 11/03/2018 [facility] Clotest SEE RESULT [address] [place] [address] [phone] Laboratory test 11/03/2018 [facility] Surgical SEE RESULT [address] [place] [address] [phone] CBC Auto Diff 09/21/2018 [facility] White Blood 8.9 10^3/uL N 3.5-[address] Count .8 [place] [address] [phone] Red Blood Count 4.92 10^6/uL N 4.00-5.40 Hemoglobin 15.9 g/dL N 14.0-18.0 Hematocrit 47 % N 42-52 Mean Corpuscular Volume 95 fL High 80-94 Mean Corpuscular Hemoglobin 32 pg High 27-31 Mean Corpuscular HGB Conc 34 g/dL N 31-36 Red Cell Distribution Width 14 % N 10.5-15 Platelet Count 165 10^3/uL N 150-450 Mean Platelet Volume 8.6 fL N 7.4-10.4 Abs Neutrophils 5.4 10^3/uL N 1.5-7.7 Abs Lymphocytes 2.3 10^3/uL N 1.0-4.8 Abs Monocytes 0.9 10^3/uL High 0-0.8 Abs Eosinophils 0.2 10^3/uL N 0-0.6 Abs Basophils 0.1 10^3/uL N 0-0.2 Abs Nucleated RBC 0 10^3/uL Granulocyte % 61.1 % Lymphocyte % 26.2 % Monocyte % 9.8 % Eosinophil % 2.0 % Basophil % 0.9 % Nucleated Red Blood Cells % 0 Liver Function 09/21/2018 [facility] Total Protein 7.2 g/dL N 6.4-8.[address] [place] [address] [phone] Albumin 4.1 g/dL N 3.2-5.2 Globulin 3.1 g/dL N 2-4 Albumin/Globulin Ratio 1.3 N 1-3 Total Bilirubin 1.10 mg/dL High 0.2-1.0 Direct Bilirubin 0.30 mg/dL High 0.03-0.18 Indirect Bilirubin 0.8 mg/dL N 0.3-1.0 Alkaline Phosphatase 70 U/L N 34-104 Alt 49 U/L N 7-52 Ast 60 U/L High 13-39 Laboratory test 09/21/2018 [facility] Hepatitis C 1a Abnormal Undetected [address] [place] [address] [phone] Hepatitis C Rna Quant [id number] IU/mL Abnormal Undetected 11 Testosterone Total 659.44 ng/dL N 240-950 LH (Lutenizing Hormone) 8.0 mIU/mL N 2-12 HCG Tumor Marker <0.6 IU/L <1.4 12 1 Result in log IU/mL is Undetected. ADDITIONAL INFORMATION The quantification range of this assay is 15 to 100,000,000 IU/mL (1.18 log to 8.00 log IU/mL). Testing was performed using the xenia HCV test ([employer] with the xenia 6800 System. Test Performed by: [facility] [address] [place] [address] 2 Mutations Detected: NONE This assay is designed to amplify HCV genotypes 1a and 1b and may not successfully amplify other HCV genotypes. This test utilizes RT-PCR and DNA sequencing to detect the presence of treatment-emergent HCV NS5a variants associated with Ns5a inhibitor antiviral therapy. The clinical significance of NS5a resistance associated variants for antiviral therapy may vary according to the clinical status and antiviral treatment experience of the HCV-infected patient. Testing for NS5a resistance-associated variants prior to initiation of treatment with elbasvir plus grazoprevir in HCV genotype 1a infected patients is recommended. For further guidance consult with the package Inserts of the applicable direct acting agents and guideline documents such as the AASLD and IDSA guidelines available at http://hcvguidelines.org. For additional information, please refer to http://education.[employer].Hair Scynce/faq/IHE192 (This link is being provided for informational/ educational purposes only.) This test was developed and its analytical performance characteristics have been determined by [facility]. It has not been cleared or approved by the FDA. This assay has been validated pursuant to the CLIA regulations and is used for clinical purposes. Test Performed by: [facility] [address] [place] [address] 3 It is recognized that currently available assays for the detection of antibodies to HIV-1 and/or HIV-2 may not detect all infected individuals. HIV antibodies may be undetectable in some stages of the infection and in some clinical conditions. The performance of this assay has not been established for populations of infants or children. Assayed by Chemiluminescence Microparticle Immunoassay on the Siemens Advia Centaur CP. Values obtained with different methods or kits cannot be used interchangeably.The diagnostic specificity of the ADVIA Centaur 1/O/2 Enhanced assay in the low risk population was 99.90% (6052/6058) with a 95% confidence interval of 99.78 to 99.96%. 4 FibroTest estimates liver fibrosis FibroTest Score Stage Interpretation 0.00-0.21 F0 no fibrosis 0.21-0.27 F0-F1 no fibrosis 0.27-0.31 F1 minimal fibrosis 0.31-0.48 F1-F2 minimal fibrosis 0.48-0.58 F2 moderate fibrosis 0.58-0.72 F3 advanced fibrosis 0.72-0.74 F3-F4 advanced fibrosis 0.74-1.00 F4 severe fibrosis (Cirrhosis) 5 minimal activity ActiTest estimates necroinflammatory activity ActiTest Score Grade Interpretation 0.00-0.17 A0 no activity 0.17-0.29 A0-A1 no activity 0.29-0.36 A1 minimal activity 0.36-0.52 A1-A2 minimal activity 0.52-0.60 A2 significant activity 0.60-0.62 A2-A3 significant activity 0.62-1.00 A3 severe activity 6 The reliability of results is dependent on compliance with the preanalytical and analytical conditions recommended by [employer]. The tests have to be deferred for: acute hemolysis, acute hepatitis, acute inflammation, extra hepatic cholestasis. The advice of a specialist should be sought for interpretation in chronic hemolysis and Gilbert's syndrome. The test interpretation is not validated in liver transplant patients. Isolated extreme values of one of the components should lead to caution in interpreting the results. In case of discordance between a biopsy result and a test, it is recommended to seek advice of a specialist. The causes of these discordances could be due to a flaw of the test or to a flaw in the biopsy: i.e. a liver biopsy has a 33% variability rate for one fibrosis stage. FibroTest is interpretable for chronic hepatitis B and C, alcoholic and non alcoholic steatosis. ActiTest is interpretable for chronic hepatitis B and C. ADDITIONAL INFORMATION This test was developed and its performance characteristics determined by [facility] in a manner consistent with CLIA requirements. This test has not been cleared or approved by the U.S. Food and Drug Administration. 7 Test Performed by: [facility] - [address] [address] 8 SEE RESULT BELOW Name: CYRUS STARK : [address]: Adryan Acriniega MD Acct: [id number] Unit: [id number] AGE: 67 Location: ENDO Re11/03/18 SEX: M Status: REG REF SPEC: [id number] HE: 11/03/18-0370 [facility] DR: Adryan Arciniega MD REQ: [id number] RECD: 11/03/18 STATUS: RODRICK MARROQUIN DR: Eddie Lopez MD _ SOURCE: GAS ANTRUM SPDESC: ORDERED: Clotest Procedure Result Reported Site Clotest Final 11/04/18- 734 ML Clotest Negative * ML - Main Lab . END OF REPORT DEPARTMENT OF PATHOLOGY, [address] [place] [address] Bryan Romo M.D. Director [facility] # [id number] SEE RESULT BELOW Name: CYRUS STARK : [address]: Adryan Arciniega MD Acct: [id number] Unit: [id number] AGE: 67 Location: ENDO Re11/03/18 SEX: M Status: DEP REF SPEC: [id number] HE: 11/03/18-1414 [facility] DR: Adryan Arciniega MD REQ: [id number] RECD: 11/03/18 STATUS: CHARLI MARROQUIN DR: Eddie Lopez MD _ ORDERED: LEVEL 4/3, IMMUNO-FIRST ADDENDUM A p16 immunohistochemical staining, with appropriately reacting controls, was performed on sections cut from specimen one and is positive in a patchy nuclear and cytoplasmic pattern, supporting the previously rendered diagnosis. Addendum Signed (signature on file) Ladi Carlson MD 1321 FINAL DIAGNOSIS 1. Esophagus, nodule at 31 cm, biopsy: -- Squamous papilloma. See comment. 2. Colon, sigmoid, biopsy: -- Tubular adenoma. -- No high grade dysplasia or malignancy. 3. Colon, splenic flexure, biopsy: -- Tubular adenoma. -- No high grade dysplasia or malignancy. Comment: An immunohistochemical stain for p16 (HPV surrogate marker) is pending in part 1 and will be reported in an addendum. CONTINUED ON NEXT PAGE DEPARTMENT OF PATHOLOGY, [address] [place] [address] Bryan Romo M.D. Director [facility] # [id number] RUN DATE: 11/05/18 [facility] LAB LIVE PAGE 2 Patient: CYRUS STARK [id number] (Continued) CLINICAL HISTORY (Continued) CLINICAL HISTORY Hepatitis C POST-OPERATIVE DIAGNOSIS EGD: larynx - symmetrical; esophagus - nodule at 31 cm; stomach - normal; duodenum - bubbles; colonoscopy: 2 polyps; conclusions: esophagus nodules; normal EGD; colon polyps; hepatitis C GROSS DESCRIPTION 1. The specimen is received in formalin labeled, Biopsy Esophageal Nodule at 31 cm, and consists of a 0.8 x 0.7 cm aggregate of white-red irregular to polypoid soft tissue fragments which is entirely submitted in one cassette. 2. The specimen is received in formalin labeled, Sigmoid Colon Polyp, and consists of two gallegos-pink irregular to polypoid soft tissue fragments measuring 0.3 x 0.3 x 0.2 cm and 1.0 x 0.5 x 0.3 cm. The largest fragment is inked, serially sectioned and the specimen is entirely submitted in one cassette. 3. The specimen is received in formalin labeled, Splenic Colon Polyp, and consists of a 0.7 x 0.5 x 0.4 cm speckled gallegos-pink irregular to polypoid soft tissue fragment which is inked, trisected and entirely submitted in one cassette. Signed by and Reported on: Bryan Romo MD 1427 END OF REPORT DEPARTMENT OF PATHOLOGY, [address] [place] [address] Bryan Romo M.D. Director [facility] # [id number] 10 ADDITIONAL INFORMATION This test was performed using the Fuchs RealTime HCV Genotype II assay ([employer] [place], [place]). Test Performed by: [facility] - [address] [address] 11 Result in log IU/mL is 6.40. ADDITIONAL INFORMATION The quantification range of this assay is 15 to 100,000,000 IU/mL (1.18 log to 8.00 log IU/mL). Testing was performed using the xenia HCV test ([employer] with the xenia 6800 System. Test Performed by: [facility] - [address] [address] 12 ADDITIONAL INFORMATION This test has been modified from the gre tutor's instructions. Its performance characteristics were determined by [facility] in a manner consistent with CLIA requirements. This test has not been cleared or approved by the U.S. Food and Drug Administration. The testing method is an electrochemiluminescence assay manufactured by [employer] and performed on the Modular or Xenia system. Values obtained with different assay methods or kits may be different and cannot be used interchangeably. Test results cannot be interpreted as absolute evidence for the presence or absence of malignant disease. Test Performed by: [facility] - [facility] [address] [facility], [place] [address] Procedures Date Code Description Status 11/03/2018 41478 Colonoscopy Flexible Remove Tumor/Polyp/Lesion Snare Completed Technique 11/03/2018 58423 Endoscopy Upper GI Biopsy Completed 10/14/2018 [id number] Mammogram Completed 08/22/2010 83845 Rad Exam; Wrist, Comp, Min 3 Views Completed 06/01/2010 97555 Rad Exam; Wrist, Comp, Min 3 Views Completed 06/01/2010 80970 Short Arm Cast Application Completed 05/11/2010 98943 Closed TX Scaphoid (Navicular) W/O Manipulation Completed Encounters Type Date Location Provider Dx Diagnosis Office Visit 01/28/2019 [facility] Dafne Ruiz B18.2 Chronic viral 11:30a Infectious Ruddy, LENS EDGER hepatitis C Diseases K74.69 Other cirrhosis of liver Office Visit 12/25/2018 [facility] Adryan Le R10.13 Epigastric pain 10:15a MD Demian F10.21 Alcohol dependence, in remission F17.210 Nicotine dependence, cigarettes, uncomplicated Z86.010 Personal history of colonic polyps Office Visit 12/08/2018 11:10a [facility] Sanjay Euceda B18.2 Chronic viral Infectious Jesus Cox hepatitis C Diseases K74.69 Other cirrhosis of liver Z12.10 Encntr screen for malignant neoplasm of intest tract, unsp Office Visit 11/10/2018 [facility] Sanjay Euceda B18.2 Chronic viral 11:10a Infectious Kurt Cox M.D. hepatitis C Office Visit 10/22/2018 [facility] Adryan Le R63.4 Abnormal 11:30a MD Demian weight loss F10.21 Alcohol dependence, in remission F17.210 Nicotine dependence, cigarettes, uncomplicated B18.2 Chronic viral hepatitis C Office Visit 09/30/2018 10:00a [facility] Concha Rosales R63.4 Abnormal weight LENS EDGER loss B18.2 Chronic viral hepatitis C N63.22 Unspecified lump in the left breast, upper inner quadrant Z01.818 Encounter for other preprocedural examination Office Visit 09/21/2018 10:00a DO Not Use Care Eddie Lopez N63.22 Unspecified lump Tootie THAO in the left [facility] breast, upper inner quadrant B18.2 Chronic viral hepatitis C R63.4 Abnormal weight loss 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 with withdrawal, Hospitalists uncomplicated F32.9 Major depressive disorder, single episode, unspecified B18.2 Chronic viral hepatitis C Office 01/27/2018 [facility] G31.2 Degeneration of Visit 11:16a Clinic Jesus Marcelino nervous system due to alcohol F10.239 Alcohol dependence with withdrawal, unspecified [facility] F10.230 Alcohol dependence 8:56a олег Seymour M.D. with withdrawal, Hospitalists uncomplicated F32.9 Major depressive disorder, single episode, unspecified B18.2 Chronic viral hepatitis C Office Visit 01/26/2018 [facility] Yomi Duque G31.2 Degeneration of 11:13a Clinic Jesus Gerber nervous system due to alcohol F10.239 Alcohol dependence with withdrawal, unspecified Office Visit 01/26/2018 [facility] F10.230 Alcohol dependence 8:55a олег Seymour M.D. with withdrawal, Hospitalists uncomplicated F32.9 Major depressive disorder, single episode, unspecified B18.2 Chronic viral hepatitis C Office Visit 01/25/2018 [facility] F10.230 Alcohol dependence 8:54a олег Seymour M.D. with withdrawal, Hospitalists uncomplicated F32.9 Major depressive disorder, single episode, unspecified B18.2 Chronic viral hepatitis C Office Visit 01/24/2018 [facility] F10.230 Alcohol dependence 8:51a олег Seymour M.D. with withdrawal, Hospitalists uncomplicated F32.9 Major depressive disorder, single episode, unspecified B18.2 Chronic viral hepatitis C Office Visit 01/23/2018 [facility] Ellison F10.230 Alcohol dependence 8:50a олег Seymour MD with withdrawal, Hospitalists uncomplicated F32.9 Major depressive disorder, single episode, unspecified B18.2 Chronic viral hepatitis C [facility] F10.230 Alcohol dependence 8:47a Assолег cole MD with withdrawal, Hospitalists uncomplicated F32.9 Major depressive disorder, single episode, unspecified B18.2 Chronic viral hepatitis C [facility] F10.230 Alcohol dependence 8:47a Assолег cole MD with withdrawal, Hospitalists uncomplicated F32.9 Major depressive disorder, single episode, unspecified B18.2 Chronic viral hepatitis C Office Visit 01/20/2018 [facility] Eddiearleen Graced, F10.230 Alcohol dependence 8:45a олег Seymour MD with withdrawal, Hospitalists uncomplicated F32.9 Major depressive disorder, single episode, unspecified B18.2 Chronic viral hepatitis C Office Visit 08/22/2010 [facility] 814.01 FX Carpal 2:15p [facility] (Scaphoid) Of Wrist Closed Plan of Treatment Future Appointment(s):08/31/2019 11:10 am - Henri Cox M.D. at [facility]pg[facility]33/11/2019 - Dafne Fox, NPB18.2 Chronic viral hepatitis CNew Labs:Hepatitis C Rna Quant, Ordered: 03/02/19New Xrays:US Liver, Ordered: 03/02/19Follow up:6 months, after liver US in . Other cirrhosis of liver
[2019-03-20 10:30] VITALS: BP 131/59
--- NOTE | 2019-03-20 11:00 | UC ---
Skin Complaint HPI - HPI Summary HPI Summary: 3 days ago pt experienced an achey pain R upper scalp, persisted until yesterday when he noticed "itchy blisters" on scalp and upper eye lid. denies vison disturbance or eye pain. has tried no treatment thus far. denies any contact with poison mary, states doesn't work outside - History of Current Complaint Chief Complaint: UCEye Time Seen by Provider: 03/20/19 10:49 Stated Complaint: EYE COMPLAINT Hx Obtained From: Patient Onset/Duration: Gradual Onset Onset Severity: Mild Current Severity: Moderate Pain Intensity: 9 Location: Face Character: Pruritus, Pain, Raised Aggravating Factor(s): Touch Alleviating Factor(s): Nothing Associated Signs & Symptoms: Positive: Fever, Tenderness - Allergy/Home Medications Allergies/Adverse Reactions: Allergies Allergy/AdvReac Type Severity Reaction Status Date / Time Penicillins Allergy Rash Verified 03/20/19 10:30 PMH/Surg Hx/FS Hx/Imm Hx Previously Healthy: Yes - Surgical History Surgical History: None - Family History Known Family History: Positive: Cardiac Disease - Paternal grandfather ( [place] 70's), brother [place] (56 yo) Negative: Hypertension, Respiratory Disease, Other - Cancer - Social History Occupation: Unemployed Lives: With Family Alcohol Use: Daily Substance Use Type: Marijuana Substance Use Comment - Amount & Last Used: rarely Smoking Status (MU): Heavy Every Day Tobacco Smoker Type: Cigarettes Have You Smoked in the Last Year: Yes Cessation Counseling: Patient Advised to Stop - Immunization History Most Recent Influenza Vaccination: unk Most Recent Pneumonia Vaccination: unk Review of Systems All Other Systems Reviewed And Are Negative: Yes Constitutional: Positive: Fever. Negative: Chills Skin: Positive: Rash Eyes: Positive: Negative. Negative: Blurred Vision, Diplopia, Eye Redness, Photophobia ENT: Positive: Negative. Negative: Sore Throat, Ear Ache Respiratory: Positive: Negative Cardiovascular: Positive: Negative Musculoskeletal: Positive: Negative. Negative: Arthralgia Neurological: Negative: Headache Psychological: Positive: Negative Is Patient Immunocompromised?: No Physical Exam Triage Information Reviewed: Yes Appearance: Well-Appearing, No Pain Distress, Well-Nourished Vital Signs: Initial Vital Signs Temp 99.3 F 03/20/19 10:25 Pulse 74 03/20/19 10:25 Resp 18 03/20/19 10:25 BP 131/59 03/20/19 10:25 Pulse Ox 99 03/20/19 10:25 Vital Signs Reviewed: Yes Eyes: Positive: Conjunctiva Clear. Negative: Conjunctiva Inflamed, Discharge ENT Exam: Normal Neck exam: Normal Neck: Positive: Supple, Nontender, No Lymphadenopathy Respiratory Exam: Normal Respiratory: Positive: Lungs clear Cardiovascular Exam: Normal Cardiovascular: Positive: RRR Neurological Exam: Normal Neurological: Positive: Alert Psychological Exam: Normal Skin: Positive: Rashes - vesicular, tender, mildly erythemic lesions R forehead and scalp, does not cross midline Course/Dx - Differential Diagnoses - Skin Complaint Differential Diagnoses: Cellulitis, Contact Dermatitis, MRSA, Poison Mary, Other - zoster - Diagnoses Provider Diagnosis: Herpes zoster Discharge - Sign-Out/Discharge Documenting (check all that apply): Patient Departure All imaging exams completed and their final reports reviewed: No Studies - Discharge Plan Condition: Stable Disposition: HOME Prescriptions: ValACYclovir (*) [Valtrex 1 GM(*)] 1 gm PO TID #21 tab Patient Education Materials: Shingles (ED) Referrals: Eddie Lopez MD [Primary Care Provider] - 2 Days (for recheck rash ) Additional Instructions: start taking antiviral medication today (valcyclovir) apply hydrocortisone cream to rash for itch and redness ibuprofen as directed for pain if needed Report to ER if your symptoms worsen or you experience visual changes at any time - Billing Disposition and Condition Condition: STABLE Disposition: Home
== END 2019-03-20 11:25 | disposition home or self-care (01) ==
LOC: UCEAST 10:05
DX: B02.9 Zoster without complications (principal); Z88.0 Allergy status to penicillin; F17.210 Nicotine dependence, cigarettes, uncomplicated
CPT/HCPCS: 99212; G0463

== ENCOUNTER 2023-04-15 11:51 | Observation (INO) ==
[2023-04-15 12:35] LABS: ABS Basophils 0.1 10^3/uL (0.0-0.1); ABS Eosinophils 0.3 10^3/uL (0.0-0.5); ABS Lymphocytes 1.4 10^3/uL (1.0-4.8); ABS Monocytes 0.7 10^3/uL (0.0-1.1); ABS Neutrophils 4.8 10^3/uL (1.5-7.6); ABS Nucleated RBC 0.01 10^3/ul; Eosinophil % 3.8 %; Hematocrit 41.7 % (38-53); Hemoglobin 14.2 g/dL (13.2-16.3); Lymphocyte % 18.9 %; Mean Corpuscular Hemoglobin 32.6 pg (27-33); Mean Corpuscular Volume 95.8 fL (80-97); Mean Platelet Volume 7.8 fL (7.5-11.2); Nucleated Red Blood Cells % 0.1 /100 WBC (0.0-0.4); Platelet Count 183 10^3/uL (150-450); Red Blood Count 4.35 10^6/uL (4.06-5.63); Red Cell Distribution Width 14.7 % (12-17); White Blood Count 7.2 10^3/uL (3.6-10.2)
[2023-04-15] MEDS ORDERED: Thiamine 100 MG/ML 2 ml VIAL 100 MG, Folic Acid IV 1 MG, Multiple Vitamin IV ADULT 10 M... IV ONE (12:40)
[2023-04-15] MEDS ORDERED: Tetan/Diph/Pertus SYR(Tdap) 0.5 ML SYR(BOOSTRIX) use SYR contains LATEX IM ONE (12:41)
[2023-04-15 12:51] LABS: Albumin 3.5 g/dL (3.2-5.2); Albumin/Globulin Ratio 1.4 (1-3); Calcium 8.9 mg/dL (8.6-10.3); Creatinine, Serum 0.95 mg/dL (0.67-1.17); Globulin 2.5 g/dL (2-4); Magnesium 1.8 mg/dL (1.9-2.7); Potassium 3.5 mmol/L (3.5-5.0); Total Bilirubin 0.5 mg/dL (0.2-1.0); eGFR CKD-EPI 86.1 (>60)
[2023-04-15] MEDS ORDERED: Iohexol 350 (CONTRAST) 500 ML MDV IV ONE (13:36)
[2023-04-15 13:37] LABS: Folate 11.12 ng/mL (5.90-24.80)
[2023-04-15 15:12] LABS: Urine Appearance Clear; Urine Bilirubin Negative (Negative); Urine Blood Negative (Negative); Urine Color Yellow; Urine Glucose Negative (Negative); Urine Ketones Negative (Negative); Urine Nitrite Negative (Negative); Urine Protein Negative (Negative); Urine Specific Gravity 1.033 (1.002-1.030); Urine Urobilinogen Negative (Negative)
[2023-04-15 16:50] LABS: Urine Benzodiazepine Screen Presumptive Positive (None Detect); Urine Cannabinoids Screen None Detected (None Detect); Urine Opiates Screen None Detected (None Detect)
[2023-04-15] MEDS ORDERED: Ondansetron 4 mg VIAL 2 MG/ML 2 ml VIAL IV PRN (17:34)
[2023-04-15 19:03] LABS: TSH Ultra Thyroid Stim Horm 2.41 mcIU/mL (0.34-5.60)
[2023-04-15 19:16] LABS: Urine Buprenorphine Screen None Detected (None Detect); Urine Fentanyl Screen None Detected (None Detect); Urine Hydrocodone Screen None Detected (None Detect)
[2023-04-15] MEDS ORDERED: Thiamine 100 MG/ML 2 ml VIAL (200 mg) ONE (20:53)
[2023-04-15] MEDS ORDERED: Thiamine 100 MG/ML 2 ml VIAL 500 MG in NS 0.9% 250 ml 250 ML IV SCH (21:00)
[2023-04-15] MEDS: Thiamine IV 500 MG in NS 0.9% 250 ML (Wernicke-Korsakoff) IV SCH (21:20)
[2023-04-15] MEDS: Enoxaparin 40 MG/0.4 ML SYR SUBCUT SCH (21:20)
[2023-04-15 21:39] LABS: HDL Cholesterol 43.8 mg/dL
[2023-04-16 05:32] LABS: ABS Basophils 0.1 10^3/uL (0.0-0.1); ABS Eosinophils 0.4 10^3/uL (0.0-0.5); ABS Lymphocytes 1.8 10^3/uL (1.0-4.8); ABS Neutrophils 5.5 10^3/uL (1.5-7.6); ABS Nucleated RBC 0.01 10^3/ul; Eosinophil % 4.3 %; Hematocrit 38.1 % (38-53); Hemoglobin 13.4 g/dL (13.2-16.3); Lymphocyte % 20.4 %; Mean Corpuscular Hemoglobin 32.8 pg (27-33); Mean Corpuscular Hgb Conc 35.1 g/dL (31-36); Mean Corpuscular Volume 93.6 fL (80-97); Mean Platelet Volume 7.8 fL (7.5-11.2); Nucleated Red Blood Cells % 0.1 /100 WBC (0.0-0.4); Platelet Count 165 10^3/uL (150-450); Red Blood Count 4.07 10^6/uL (4.06-5.63); Red Cell Distribution Width 14.6 % (12-17); White Blood Count 8.8 10^3/uL (3.6-10.2)
[2023-04-16 05:49] LABS: Calcium 8.8 mg/dL (8.6-10.3); Creatinine, Serum 1.03 mg/dL (0.67-1.17); Magnesium 1.7 mg/dL (1.9-2.7); Potassium 3.6 mmol/L (3.5-5.0); eGFR CKD-EPI 78.1 (>60)
[2023-04-16] MEDS: Thiamine IV 500 MG in NS 0.9% 250 ML (Wernicke-Korsakoff) IV SCH ×3 (08:43→23:04)
[2023-04-16] MEDS ORDERED: Magnesium Sulfate 2 gm BAG 2 GM/50 ML BAG IVPB ONE (13:22)
[2023-04-16] MEDS ORDERED: Potassium Chlor 20 meq TAB.ER PO ONE (13:22)
[2023-04-16] MEDS: Enoxaparin 40 MG/0.4 ML SYR SUBCUT SCH (21:01)
[2023-04-17 06:07] LABS: Hematocrit 37.7 % (38-53); Hemoglobin 13.2 g/dL (13.2-16.3); Mean Corpuscular Hemoglobin 32.4 pg (27-33); Mean Corpuscular Volume 92.5 fL (80-97); Mean Platelet Volume 7.6 fL (7.5-11.2); Platelet Count 185 10^3/uL (150-450); Red Blood Count 4.07 10^6/uL (4.06-5.63); Red Cell Distribution Width 14.6 % (12-17); White Blood Count 8.6 10^3/uL (3.6-10.2)
[2023-04-17 06:38] LABS: Albumin 3.1 g/dL (3.2-5.2); Albumin/Globulin Ratio 1.2 (1-3); Calcium 8.6 mg/dL (8.6-10.3); Creatinine, Serum 1.08 mg/dL (0.67-1.17); Globulin 2.5 g/dL (2-4); Magnesium 1.9 mg/dL (1.9-2.7); Phosphorus 3.3 mg/dL (2.5-5.0); Potassium 3.8 mmol/L (3.5-5.0); Total Bilirubin 0.6 mg/dL (0.2-1.0); Total Protein 5.6 g/dL (6.4-8.9); eGFR CKD-EPI 73.8 (>60)
[2023-04-17] MEDS: Thiamine IV 500 MG in NS 0.9% 250 ML (Wernicke-Korsakoff) IV SCH ×2 (10:51→18:28)
[2023-04-17] MEDS: Nicotine PATCH 21 MG/24 HR PATCH TRANSDERM SCH (13:00)
[2023-04-17] MEDS: Enoxaparin 40 MG/0.4 ML SYR SUBCUT SCH (19:25)
[2023-04-18 06:06] VITALS: BP 142/53
[2023-04-18] MEDS: Nicotine PATCH 21 MG/24 HR PATCH TRANSDERM SCH (08:28)
[2023-04-18 16:08] LABS: Anaplasma phagocytophilum Negative (Negative); B. miyamotoi PCR, B Negative (Negative); Babesia divergens/MO-1 Negative (Negative); Babesia ducani Negative (Negative); Ehrlichia chaffeensis Negative (Negative); Ehrlichia ewingii/canis Negative (Negative); Ehrlichia muris eauclairensis Negative (Negative)
[2023-04-21] MEDS ORDERED: Thiamine IV 250 MG in NS 0.9% 100 ML Q24H IV SCH (09:00)
== END 2023-04-18 08:45 ==
LOC: EDHOLD 11:51 → ED 11:51 → SUATTDRO 17:34 → EDHOLD 04-16 14:31 → MEDTELE 04-16 16:04
PROVIDERS: ADMIT Internal Medicine; ATTEND Internal Medicine

== ENCOUNTER 2023-12-04 13:12 | Observation (INO) ==
[2023-12-04 14:40] LABS: ABS Basophils 0.1 10^3/uL (0.0-0.1); ABS Eosinophils 0.2 10^3/uL (0.0-0.5); ABS Monocytes 0.9 10^3/uL (0.0-1.1); ABS Neutrophils 10.3 10^3/uL (1.5-7.6); ABS Nucleated RBC 0.01 10^3/ul; Eosinophil % 1.6 %; Hematocrit 43.1 % (38-53); Hemoglobin 14.7 g/dL (13.2-16.3); Lymphocyte % 7.8 %; Mean Corpuscular Hemoglobin 30.1 pg (27-33); Mean Corpuscular Hgb Conc 34.2 g/dL (31-36); Mean Corpuscular Volume 88.2 fL (80-97); Mean Platelet Volume 8.5 fL (7.5-11.2); Nucleated Red Blood Cells % 0.1 %/100WBC (0.0-0.8); Platelet Count 188 10^3/uL (150-450); Red Blood Count 4.88 10^6/uL (4.06-5.63); Red Cell Distribution Width 14.5 % (12-17); White Blood Count 12.5 10^3/uL (3.6-10.2)
[2023-12-04 14:53] LABS: INR 1.16 (0.83-1.13)
[2023-12-04 15:08] LABS: High Sens Troponin Baseline 9 pg/mL (<20)
[2023-12-04 15:30] LABS: ALT 11 U/L (7-52); Albumin 4.7 g/dL (3.2-5.2); Albumin/Globulin Ratio 1.6 (1-3); Alkaline Phosphatase 52 U/L (35-149); Anion Gap 7 mmol/L (2-16); Blood Urea Nitrogen 10 mg/dL (6-24); CO2 Carbon Dioxide 30 mmol/L (22-32); Calcium 9.6 mg/dL (8.6-10.3); Chloride 101 mmol/L (101-111); Creatinine, Serum 1.32 mg/dL (0.67-1.17); Globulin 2.9 g/dL (2-4); Glucose 100 mg/dL (70-100); Sodium 138 mmol/L (135-145); Total Bilirubin 0.9 mg/dL (0.2-1.0); Total Protein 7.6 g/dL (6.4-8.9); eGFR CKD-EPI 57.7 (>60)
[2023-12-04 15:39] LABS: T4, Total 12.05 mcg/dL (6.09-12.23)
[2023-12-04 15:42] LABS: TSH Ultra Thyroid Stim Horm 0.93 mcIU/mL (0.34-5.60)
[2023-12-04 16:00] LABS: Alcohol, S < 13 mg/dL (<13)
[2023-12-04 16:38] LABS: Magnesium 1.7 mg/dL (1.9-2.7); Potassium Redraw 3.5 mmol/L (3.5-5.0)
[2023-12-04] MEDS: Magnesium Sulf 4 GM/100 ML IV 4,000 MG/100 ML BAG IVPB ONE (21:17)
[2023-12-04] MEDS: Enoxaparin 40 MG/0.4 ML SYR SUBCUT SCH (23:53)
[2023-12-05 05:48] LABS: ABS Eosinophils 0.4 10^3/uL (0.0-0.5); ABS Lymphocytes 2.6 10^3/uL (1.0-4.8); ABS Neutrophils 6.9 10^3/uL (1.5-7.6); ABS Nucleated RBC 0.01 10^3/ul; Eosinophil % 3.8 %; Hematocrit 34.8 % (38-53); Hemoglobin 11.9 g/dL (13.2-16.3); Mean Corpuscular Hemoglobin 30.1 pg (27-33); Mean Corpuscular Hgb Conc 34.1 g/dL (31-36); Mean Corpuscular Volume 88.1 fL (80-97); Mean Platelet Volume 8.8 fL (7.5-11.2); Platelet Count 166 10^3/uL (150-450); Red Blood Count 3.95 10^6/uL (4.06-5.63); Red Cell Distribution Width 14.4 % (12-17)
[2023-12-05 06:26] LABS: Calcium 7.5 mg/dL (8.6-10.3); Creatinine, Serum 1.21 mg/dL (0.67-1.17); Magnesium 2.3 mg/dL (1.9-2.7); Potassium 3.2 mmol/L (3.5-5.0)
[2023-12-05 08:56] LABS: Urine Appearance Clear; Urine Bilirubin Negative (Negative); Urine Blood 1+ (Negative); Urine Color Yellow; Urine Glucose Negative (Negative); Urine Ketones Negative (Negative); Urine Nitrite Negative (Negative); Urine Protein Trace (Negative); Urine Specific Gravity 1.027 (1.002-1.030); Urine Urobilinogen Negative (Negative)
[2023-12-05] MEDS: Potassium Chlor 20 meq TAB.ER PO ONE (09:03)
[2023-12-05] MEDS: KCL 20 MEQ/100 ML IVPREMIX 20 MEQ/100 ML BAG IV ONE (09:03)
[2023-12-05 09:49] LABS: Urine Bacteria Absent /HPF (Absent); Urine Red Blood Cell 3+(>10/hpf) /HPF (0-Trace); Urine Squamous Epithelial Cell Present /HPF (Absent); Urine White Blood Cell Trace(0-5/hpf) /HPF (0-Trace)
[2023-12-05 12:30] VITALS: BP 152/62
== END 2023-12-05 12:31 | disposition home or self-care (01) ==
LOC: EDHOLD 13:12 → ED 13:12 → SUATTDRO 18:51 → EDHOLD 12-05 12:30
PROVIDERS: ADMIT Internal Medicine; ATTEND Student in an Organized Health Care Education/Training Program